=== PATIENT | female | born 1955 | race Caucasian/White ===

== ENCOUNTER → 2016-05-23 | Outpatient (CLI) | payer BC, OTHER ==
--- NOTE | 2016-05-23 18:06 | XR ---
EXAMINATION TYPE: XR chest 2V DATE OF EXAM: 05/23/2016 5:21 PM COMPARISON: 10/12/2011 HISTORY: Cough for one week TECHNIQUE: Frontal and lateral views of the chest are obtained. FINDINGS: Heart and mediastinum are normal. Lungs are clear. Diaphragm is normal. Bony thorax is int act. Pulmonary vascularity is normal. There is small linear density at left lung base. IMPRESSION: There is minimal subsegmental atelectasis in the left lower lobe that is new compared to old exam. Normal heart.
== END | disposition home or self-care (01) ==
LOC: RADXRMAIN 16:58
PROVIDERS: ATTEND Internal Medicine
DX: J98.11 Atelectasis (principal)
CPT/HCPCS: 71020

== ENCOUNTER → 2017-05-16 | Outpatient (CLI) | payer BC, OTHER ==
--- NOTE | 2017-05-16 17:00 | XR ---
EXAMINATION TYPE: XR chest 2V DATE OF EXAM: 05/16/2017 COMPARISON: 05/23/2016 HISTORY: Bronchitis chest pain TECHNIQUE: Frontal and lateral views of the chest are obtained. FINDINGS: Heart and mediastinum are normal. Lungs are clear. Diaphragm is normal. Bony thorax is int act. IMPRESSION: Normal chest. There is clearing of focal minimal atelectasis at left lung base compared to old exam..
== END | disposition home or self-care (01) ==
LOC: RADXRMAIN 16:25
PROVIDERS: ATTEND Internal Medicine
DX: J40 Bronchitis, not specified as acute or chronic (principal)
CPT/HCPCS: 71046

== ENCOUNTER → 2018-03-06 | Outpatient (CLI) | payer BC, OTHER ==
--- NOTE | 2018-03-06 10:39 | MM ---
Reason for exam: additional evaluation requested from prior study. Last mammogram was performed 1 year and 1 month ago. History: Patient is postmenopausal, has history of high-risk lesion on a previous biopsy at age 54, and had first child at age 37. Family history of breast cancer in paternal grandmother at age 70. High risk right breast needle localzation of both breasts, August 17, 2010. Benign right mammotome panel of the right breast, July 18, 2010. Took hormonal contraceptives for 3 years. Took tamoxifen for 5 years beginning at age 54. Physical Findings: Nurse did not find any significant physical abnormalities on exam. MG 3D Diag Mammo W/Cad ALYSSA Bilateral CC and MLO view(s) were taken. Prior study comparison: February 05, 2017, bilateral MG 3d diag mammo w/cad ALYSSA. January 21, 2016, bilateral MG 3d diag mammo w/cad ALYSSA. The breast tissue is heterogeneously dense. This may lower the sensitivity of mammography. No significant new findings when compared with previous films. These results were verbally communicated with the patient and result sheet given to the patient on 03/06/18. ASSESSMENT: Benign, BI-RAD 2 RECOMMENDATION: Routine screening mammogram of both breasts in 1 year.
== END | disposition home or self-care (01) ==
LOC: RADMAMWWP 08:15
PROVIDERS: ATTEND Internal Medicine
DX: R92.2 Inconclusive mammogram (principal)
CPT/HCPCS: 77062; 77066

== ENCOUNTER → 2018-05-20 | Outpatient (CLI) | payer BC, OTHER ==
--- NOTE | 2018-05-20 21:07 | US ---
EXAMINATION TYPE: US carotid duplex BILAT DATE OF EXAM: 05/20/2018 COMPARISON: NONE CLINICAL HISTORY: 62-year-old female I65.23 OCCLUSION STENOSIS OF ALYSSA CAROTID ARTERIES. TECHNIQUE: Carotid duplex ultrasound examination. Indirect Doppler criteria was utilized. FINDINGS: EXAM MEASUREMENTS: RIGHT: Peak Systolic Velocity (PSV) cm/sec ----- Right CCA: 60.5 ----- Right ICA: 98.7 ----- Right ECA: 79.3 ICA/CCA ratio: 1.6 RIGHT: End Diastole cm/sec ----- Right CCA: 19.9 ----- Right ICA: 36.4 ----- Right ECA: 12.9 LEFT: Peak Systolic Velocity (PSV) cm/sec ----- Left CCA: 109.2 ----- Left ICA: 85.9 ----- Left ECA: 67.8 ICA/CCA ratio: 0.8 LEFT: End Diastole cm/sec ----- Left CCA: 26.1 ----- Left ICA: 24.8 ----- Left ECA: 13.1 VERTEBRALS (direction of flow): Right Vertebral: Antegrade Left Vertebral: Antegrade Rhythm: Normal Certified Alcohol Drug Counselor notes: Minimal plaque, no elevated velocities. IMPRESSION: No hemodynamically significant stenosis appreciated in either internal carotid artery. Criteria for Assigning % of Stenosis / Diameter reduction (Estimation based on the indirect measurements of the internal carotid artery velocities (ICA PSV). 1. Normal (no stenosis)=ICA PSV < 125 cm/s: ratio < 2.0: ICA EDV<40 cm/s. 2. Less than 50% stenosis=ICA PSV < 125 cm/s: ratio < 2.0: ICA EDV<40 cm/s. 3. 50 to 69% stenosis=ICA PSV of 125 to 230 cm/s: ration 2.0 ? 4.0: ICA EDV 40-100 cm/s. 4. Greater than 70% stenosis to near occlusion= ICA PSV > 230 cm/s: ratio > 4.0: ICA EDV > 100 cm/s. 5. Near occlusion= ICA PSV velocities may be low or undetectable: variable ratio and ICA EDV. 6. Total occlusion=unable to detect flow.
== END ==
LOC: RADUSWWP 15:40
PROVIDERS: ATTEND Internal Medicine
DX: I65.23 Occlusion and stenosis of bilateral carotid arteries (principal)
CPT/HCPCS: 93880

== ENCOUNTER 2018-06-12 08:28 | Day surgery (SDC) | payer BC, OTHER ==
[2018-06-12] MEDS: LACTATED RINGERS 1,000 ML IV SCH ×2 (09:05→09:38)
[2018-06-12 09:11] VITALS: RESP 16; TEMP 98
[2018-06-12] MEDS ORDERED: PROPOFOL 10 MG/ML 20 ML VIAL IV ONE (09:42)
--- NOTE | 2018-06-12 10:05 | P.PCN ---
Date of Procedure: 06/12/18 Procedure(s) Performed: BRIEF HISTORY: Patient is a 62-year-old pleasant white female, scheduled for an elective colonoscopy as a part of screening for colon neoplasia. PROCEDURE PERFORMED: Colonoscopy with snare polypectomy. PREOPERATIVE DIAGNOSIS: Screening for colon cancer. IV sedation per Anesthesia. PROCEDURE: After informed consent was obtained, the patient, was brought into the endoscopy unit. IV sedation was administered by Anesthesia under continuous monitoring. Digital rectal examination was normal. Initially the Olympus CF- 160 flexible video colonoscope was then inserted in the rectum, gradually advanced into the cecum without any difficulty. Careful examination was performed as the scope was gradually being withdrawn. Ileocecal valve and the appendiceal orifice were visualized and appeared normal. Prep was excellent. In the base of the cecum there was a 1 cm broad-based polyp removed by snare polypectomy. Rest of the mucosa of the cecum appeared normal. In the ascending colon there was another 1 cm broad-based polyp removed by snare polypectomy. Rest of the ascending colon, transverse colon, descending colon, sigmoid colon, and rectum appeared normal. Retroflexion was performed in the rectum and no lesions were seen. scattered sigmoid diverticulosis seen. The patient tolerated the procedure well. IMPRESSION: 1 cm broad-based cecal polyp status post polypectomy 1 cm broad-based ascending colon polyp status post polypectomy Scattered sigmoid diverticulosis RECOMMENDATIONS: Findings of this examination were discussed with the patient as well as a family. She was advised to follow with the biopsy results and if the biopsy shows an adenoma she can have a repeat colonoscopy in 3 years
[2018-06-12 10:40] VITALS: BP 117/83; PULSE 79
== END 2018-06-12 11:00 | disposition home or self-care (01) ==
LOC: ORWHC2ENDO 08:28
PROVIDERS: ATTEND Internal Medicine Gastroenterology
DX: Z12.11 Encounter for screening for malignant neoplasm of colon (principal); D12.0 Benign neoplasm of cecum; D12.2 Benign neoplasm of ascending colon; K57.30 Diverticulosis of large intestine without perforation or abscess without bleeding; I10 Essential (primary) hypertension; Z79.899 Other long term (current) drug therapy; Z91.048 Other nonmedicinal substance allergy status
CPT/HCPCS: 45385; J2704; 88305

== ENCOUNTER → 2019-03-24 | Outpatient (CLI) | payer BC, OTHER ==
--- NOTE | 2019-03-24 09:27 | MM ---
Reason for exam: screening (asymptomatic). Last mammogram was performed 1 year and 1 month ago. History: Patient is postmenopausal, has history of high-risk lesion on a previous biopsy at age 54, and had first child at age 37. Family history of breast cancer in paternal grandmother at age 70. High risk right breast needle localzation of both breasts, August 17, 2010. Benign right mammotome panel of the right breast, July 18, 2010. Took hormonal contraceptives for 3 years. Took tamoxifen for 5 years beginning at age 54. Physical Findings: A clinical breast exam by your physician is recommended on an annual basis and results should be correlated with mammographic findings. MG 3D Screening Mammo W/Cad Bilateral CC and MLO view(s) were taken. Prior study comparison: March 06, 2018, bilateral MG 3d diag mammo w/cad ALYSSA. February 05, 2017, bilateral MG 3d diag mammo w/cad ALYSSA. The breast tissue is heterogeneously dense. This may lower the sensitivity of mammography. There is a stable right upper outer quadrant middle depth mass. No suspicious abnormality. Post surgical change bilaterally. No significant changes when compared with prior studies. ASSESSMENT: Benign, BI-RAD 2 RECOMMENDATION: Routine screening mammogram of both breasts in 1 year.
--- NOTE | 2019-03-24 10:45 | BD ---
EXAMINATION TYPE: Axial Bone Density DATE OF EXAM: 03/24/2019 COMPARISON: 2012 CLINICAL HISTORY: M 83.0 Height: 66 inches Weight: 239 FRAX RISK QUESTIONS: Alcohol (3 or more units per day): no Family History (Parent hip fracture): no Glucocorticoids (More than 3mos): no (Ex: prednisone, prednisolone, methylprednisolone, dexamethasone, and hydrocortisone). History of Fracture in Adulthood: no Secondary Osteoporosis: 1. Type 1 Diabetes: no 2. Hyperthyroidism: no 3. Menopause before 45: no 4. Malnutrition: no 5. Chronic liver disease: no Rheumatoid Arthritis: no Current Tobacco Use: no RISK FACTORS HISTORY OF: Family History of Osteoporosis: not to knowledge of patient Active: yes Diet low in dairy products/other sources of calcium: no Postmenopausal woman: ys Take estrogen and/or progesterone medications: no Lost more than 2 inches in height since high school: no Frequent falls: no Poor Health: no Hyperparathyroidism: no Adrenal Insufficiency: no MEDICATIONS: Prednisone or other steroids: no Thyroid Medications: no Osteoporosis Medications: no Additional Medications: blood pressure med Additional History: lobular breast CA in situ age 54; at one time took tamoxifen age [age] EXAM MEASUREMENTS: Bone mineral densitometry was performed using the [employer]oladex System. Bone mineral density as measured about the Lumbar spine is: ----- L1-L4(G/cm2): 1.221 T Score Values are as follows: ----- L2: 0.1 ----- L3: 1.1 ----- L4: 1.1 ----- L1-L4: 0.3 Bone mineral density has: Decreased -3.9 % since study of: 05/08/2013 Bone mineral density about the R hip (g/cm2): 1.006 Bone mineral density about the L hip (g/cm2): 0.908 T Score Values are as follows: R Neck -0.2 L Neck -0.9 R Total -0.5 L Total -0.4 Bone mineral density has decreased -11.0% since study of 05/08/2013 IMPRESSION: Normal (Values between +1 and -1 indicate normal bone mass). Values approach osteopenia. Consider re peating this study in 5 years or sooner if there is some new clinical indication. NOTE: T-SCORE=SD OF THE YOUNG ADULT MEAN.
== END | disposition home or self-care (01) ==
LOC: RADMAMWWP 07:29
PROVIDERS: ATTEND Internal Medicine
DX: Z12.31 Encounter for screening mammogram for malignant neoplasm of breast (principal); M85.80 Other specified disorders of bone density and structure, unspecified site; M81.0 Age-related osteoporosis without current pathological fracture
CPT/HCPCS: 77063; 77067; 77080

== ENCOUNTER 2020-02-11 12:48 | Inpatient (IN) | payer BC, OTHER ==
[2020-02-11] MEDS ORDERED: SODIUM CHLORIDE 0.9% 1,000 ML IV STA ×2 (13:26)
--- NOTE | 2020-02-11 13:56 | ED ---
General Adult HPI - General Chief complaint: Recheck/Abnormal Lab/Rx Stated complaint: Abnormal Labs Time Seen by Provider: 02/11/20 12:51 Source: patient, RN notes reviewed, old records reviewed Mode of arrival: ambulatory Limitations: no limitations - History of Present Illness Initial comments: 64-year-old female sent in by primary care physician for evaluation of elevated creatinine and acute renal failure. Patient has been feeling ill for approx imately one week, poor appetite. She was diagnosed with coronavirus. She has no cough or dyspnea. No chest pain. No abdominal pain. She states she has not been eating or drinking well. She was found to have elevated creatinine and sent to the emergency department for evaluation. - Related Data Home Medications Medication Instructions Recorded Confirmed Atorvastatin Calcium [Lipitor] 10 mg PO HS 02/11/20 02/11/20 Escitalopram [Lexapro] 5 mg PO DAILY 02/11/20 02/11/20 Lisinopril-Hctz 20-25 mg 1 tab PO DAILY 02/11/20 02/11/20 [Zestoretic 20-25] Metoprolol Tartrate [Lopressor] 25 mg PO BID 02/11/20 02/11/20 Allergies Allergy/AdvReac Type Severity Reaction Status Date / Time iodine Allergy Anaphylaxis Verified 02/11/20 13:37 shellfish derived [Shellfish] Allergy Nausea & Verified 02/11/20 13:37 Vomiting Review of Systems ROS Statement: Those systems with pertinent positive or pertinent negative responses have been documented in the HPI. ROS Other: All systems not noted in ROS Statement are negative. Past Medical History Past Medical History: Hypertension History of Any Multi-Drug Resistant Organisms: None Reported Past Surgical History: Breast Surgery Additional Past Surgical History / Comment(s): RIGHT BREAST BX-NEG. LAPROSCOPY. BILATERAL CATARACTS WITH LENS IMPLANTS Past Anesthesia/Blood Transfusion Reactions: No Reported Reaction Additional Past Anesthesia/Blood Transfusion Reaction / Comment(s): SEEMS TO TAKE EXTRA ANESTHESIA TO KEEP HER ASLEEP. Past Psychological History: No Psychological Hx Reported Smoking Status: Never smoker Past Alcohol Use History: Occasional Past Drug Use History: None Reported General Exam Limitations: no limitations General appearance: alert, in no apparent distress Head exam: Present: atraumatic, normocephalic Eye exam: Present: normal appearance, PERRL ENT exam: Present: mucous membranes dry Neck exam: Present: normal inspection. Absent: tenderness, meningismus Respiratory exam: Present: normal lung sounds bilaterally. Absent: respiratory distress, wheezes Cardiovascular Exam: Present: regular rate, normal rhythm GI/Abdominal exam: Present: soft. Absent: distended, tenderness, guarding Extremities exam: Present: normal inspection, normal capillary refill. Absent: pedal edema Neurological exam: Present: alert, oriented X3, CN II-XII intact. Absent: motor sensory deficit Psychiatric exam: Present: normal affect, normal mood Skin exam: Present: warm, dry, intact. Absent: cyanosis, diaphoretic Course Vital Signs 02/11/20 12:51 Pulse Rate 84 Respiratory 16 Rate Blood Pressure 119/67 O2 Sat by Pulse 97 Oximetry EKG Findings - EKG Comments: EKG Findings:: EKG: Normal sinus rhythm, no ST segment elevation, rate of 82, IL interval 152, QRS duration 92, QTC 462 Medical Decision Making - Medical Decision Making Patient who tested positive for COVID, poor appetite, diarrhea, presenting with acute kidney injury, elevated creatinine. Patient does appear dehydrated, work up in the emergency department reveals a creatinine 1.3, elevated BUN. Urinalysis showing 82 red blood cells. Urine culture pending, patient started on ceftriaxone emergency prompt. She will be admitted for IV hydration. Case discussed with Dr. More, who will admit, requests infectious disease on consult. - Lab Data Result diagrams: 02/11/20 13:42 02/11/20 13:42 Lab Results 02/11/20 02/11/20 02/11/20 Range/Units 13:42 13:42 13:42 WBC 6.0 (3.8-10.6) k/uL RBC 4.42 (3.80-5.40) m/uL Hgb 13.1 (11.4-16.0) gm/dL Hct 39.7 (34.0-46.0) % MCV 89.8 (80.0-100.0) fL MCH 29.6 (25.0-35.0) pg MCHC 33.0 (31.0-37.0) g/dL RDW 13.5 (11.5-15.5) % Plt Count 377 (150-450) k/uL Neutrophils % 78 % Lymphocytes % 14 % Monocytes % 4 % Eosinophils % 1 % Basophils % 1 % Neutrophils # 4.7 (1.3-7.7) k/uL Lymphocytes # 0.8 L (1.0-4.8) k/uL Monocytes # 0.2 (0-1.0) k/uL Eosinophils # 0.0 (0-0.7) k/uL Basophils # 0.0 (0-0.2) k/uL PT 9.6 (9.0-12.0) sec INR 0.9 (<1.2) APTT 22.8 (22.0-30.0) sec Sodium 134 L (137-145) mmol/L Potassium 4.9 (3.5-5.1) mmol/L Chloride 101 (98-107) mmol/L Carbon Dioxide 24 (22-30) mmol/L Anion Gap 9 mmol/L BUN 36 H (7-17) mg/dL Creatinine 1.30 H (0.52-1.04) mg/dL Est GFR (CKD-EPI)AfAm 51 (>60 ml/min/1.73 sqM) Est GFR (CKD-EPI)NonAf 44 (>60 ml/min/1.73 sqM) Glucose 123 H (74-99) mg/dL Plasma Lactic Acid Max (0.7-2.0) mmol/L Calcium 9.2 (8.4-10.2) mg/dL Magnesium 2.2 (1.6-2.3) mg/dL Total Bilirubin 0.8 (0.2-1.3) mg/dL AST 37 H (14-36) U/L ALT 18 (4-34) U/L Alkaline Phosphatase 86 (38-126) U/L Total Protein 7.4 (6.3-8.2) g/dL Albumin 4.2 (3.5-5.0) g/dL Urine Color Urine Appearance (Clear) Urine pH (5.0-8.0) Ur Specific [place] (1.001-1.035) Urine Protein (Negative) Urine Glucose (UA) (Negative) Urine Ketones (Negative) Urine Blood (Negative) Urine Nitrite (Negative) Urine Bilirubin (Negative) Urine Urobilinogen (<2.0) mg/dL Ur Leukocyte Esterase (Negative) Urine RBC (0-5) /hpf Urine WBC (0-5) /hpf Urine WBC Clumps (None) /hpf Ur Squamous Epith Cells (0-4) /hpf Urine Bacteria (None) /hpf Urine Mucus (None) /hpf 02/11/20 02/11/20 Range/Units 13:42 13:48 WBC (3.8-10.6) k/uL RBC (3.80-5.40) m/uL Hgb (11.4-16.0) gm/dL Hct (34.0-46.0) % MCV (80.0-100.0) fL MCH (25.0-35.0) pg MCHC (31.0-37.0) g/dL RDW (11.5-15.5) % Plt Count (150-450) k/uL Neutrophils % % Lymphocytes % % Monocytes % % Eosinophils % % Basophils % % Neutrophils # (1.3-7.7) k/uL Lymphocytes # (1.0-4.8) k/uL Monocytes # (0-1.0) k/uL Eosinophils # (0-0.7) k/uL Basophils # (0-0.2) k/uL PT (9.0-12.0) sec INR (<1.2) APTT (22.0-30.0) sec Sodium (137-145) mmol/L Potassium (3.5-5.1) mmol/L Chloride (98-107) mmol/L Carbon Dioxide (22-30) mmol/L Anion Gap mmol/L BUN (7-17) mg/dL Creatinine (0.52-1.04) mg/dL Est GFR (CKD-EPI)AfAm (>60 ml/min/1.73 sqM) Est GFR (CKD-EPI)NonAf (>60 ml/min/1.73 sqM) Glucose (74-99) mg/dL Plasma Lactic Acid Max 1.2 (0.7-2.0) mmol/L Calcium (8.4-10.2) mg/dL Magnesium (1.6-2.3) mg/dL Total Bilirubin (0.2-1.3) mg/dL AST (14-36) U/L ALT (4-34) U/L Alkaline Phosphatase (38-126) U/L Total Protein (6.3-8.2) g/dL Albumin (3.5-5.0) g/dL Urine Color Yellow Urine Appearance Cloudy H (Clear) Urine pH 5.5 (5.0-8.0) Ur Specific [place] 1.014 (1.001-1.035) Urine Protein Negative (Negative) Urine Glucose (UA) Negative (Negative) Urine Ketones Negative (Negative) Urine Blood Negative (Negative) Urine Nitrite Positive H (Negative) Urine Bilirubin Negative (Negative) Urine Urobilinogen <2.0 (<2.0) mg/dL Ur Leukocyte Esterase Large H (Negative) Urine RBC 2 (0-5) /hpf Urine WBC 82 H (0-5) /hpf Urine WBC Clumps Moderate H (None) /hpf Ur Squamous Epith Cells 3 (0-4) /hpf Urine Bacteria Moderate H (None) /hpf Urine Mucus Rare H (None) /hpf Disposition Clinical Impression: COVID-19, FLORENTIN (acute kidney injury) Disposition: ADMITTED IP TO THIS [facility] Condition: Stable Is patient prescribed a controlled substance at d/c from ED?: No Referrals: Devang More MD [Primary Care Provider] - 1-2 days Decision to Admit Reason: Admit from EC Decision Date: 02/11/20 Decision Time: 14:45
[2020-02-11 14:19] LABS: Basophils % (A) 1 %; Eosinophils % (A) 1 %; HCT 39.7 % (34.0-46.0); HGB 13.1 gm/dL (11.4-16.0); Lymphocytes # (A) 0.8 k/uL (1.0-4.8); Lymphocytes % (A) 14 %; MCH 29.6 pg (25.0-35.0); MCV 89.8 fL (80.0-100.0); Mean Platelet Volume 6.6; Monocytes # (A) 0.2 k/uL (0-1.0); Monocytes % (A) 4 %; Neutrophils # (A) 4.7 k/uL (1.3-7.7); Neutrophils % (A) 78 %; Platelet Count 377 k/uL (150-450); RBC 4.42 m/uL (3.80-5.40); RDW 13.5 % (11.5-15.5)
[2020-02-11 14:23] LABS: Appearance,Urine Cloudy (Clear); Bacteria,Urine Moderate /hpf; Bilirubin,Urine Negative (Negative); Blood,Urine Negative (Negative); Color,Urine Yellow; Glucose,Urine (UA) Negative (Negative); Ketones,Urine Negative (Negative); Leukocyte Esterase,Urine Large (Negative); Mucus,Urine Rare /hpf; Nitrite,Urine Positive (Negative); PH, Urine 5.5 (5.0-8.0); Protein,Urine Negative (Negative); RBC,Urine 2 /hpf (0-5); Specific Gravity,Urine 1.014 (1.001-1.035); Squamous Epithelial Cell,Urine 3 /hpf (0-4); Urobilinogen,Urine <2.0 mg/dL (<2.0); WBC,Urine 82 /hpf (0-5)
[2020-02-11 14:26] LABS: Albumin 4.2 g/dL (3.5-5.0); Calcium 9.2 mg/dL (8.4-10.2); Magnesium 2.2 mg/dL (1.6-2.3); Potassium 4.9 mmol/L (3.5-5.1); Total Bilirubin 0.8 mg/dL (0.2-1.3); Total Protein 7.4 g/dL (6.3-8.2)
[2020-02-11 14:34] LABS: INR 0.9 (<1.2); Partial Thromboplastin Time 22.8 sec (22.0-30.0); Prothrombin Time 9.6 sec (9.0-12.0)
[2020-02-11] MEDS ORDERED: cefTRIAXone IN SWFI 1,000 MG/10 ML SYRINGE IVP STA (14:41)
[2020-02-11] MEDS ORDERED: NALOXONE 0.4 MG/ML 1 ML VIAL IV PRN (14:43)
[2020-02-11] MEDS ORDERED: ACETAMINOPHEN TAB 325 MG TAB PO PRN (14:43)
[2020-02-11] MEDS: ENOXAPARIN 40 MG/0.4 ML SYRINGE SQ SCH (17:47)
[2020-02-11] MEDS: ZINC SULFATE 220 MG CAP PO SCH (17:47)
[2020-02-11] MEDS: dexAMETHasone 2 MG TAB PO SCH (17:47)
--- NOTE | 2020-02-11 17:50 | P.HPIM ---
History of Present Illness H&P Date: 02/11/20 Chief Complaint: COVID-19 / FLORENTIN This is a 65-year-old female one of my patient with a previous medical history significant for hypertension and hypertensive cardiovascular disease, hyperlipidemia, history of major depressive disorder, patient came to my office about a week ago complaining of increased tiredness and fatigue along with severe diarrhea and poor appetite not able to treat or drink, at that time laboratory evaluation were done and that showed significant acute kidney injury with a creatinine of 2.3 and a GFR down all the way to 27, and the patient was taken off lisinopril hydrochlorothiazide she was instructed to increase her fluid intake and discontinue Lexapro and lisinopril hydrochlorothiazide, and at the same time she had a COVID-19 PCR testing that came back positive just today in the morning patient was called and she was directed to go to the emergency department for evaluation and treatment because of her Covid, and prior history of acute kidney injury, patient was seen by the emergency room department and she was admitted to the observation unit likely her creatinine got better 12.3, she was placed on IV fluid resuscitation she'll be placed on dexamethasone as well she is not a candidate for Remdesevir because she is not hypoxemic at this time, infectious disease consultation was obtained from Dr. Cage and the patient was placed in droplet and contact isolation, patient also was found to have acute UTI, she was startedon Rocephin 2 gr IVPB x1 and we will start Zithromax as her CXR showed new bilateral infiltrate suggestive of early pneumonia. Review of Systems Constitutional: Reports anorexia, Reports fatigue, Reports weakness, Denies chronic pain, Denies lethargy, Denies malaise, Denies weight loss Eyes: denies blurred vision, denies bulging eye, denies decreased vision Ears: deny: decreased hearing Ears, nose, mouth and throat: Denies dysphagia, Denies neck lump, Denies swelling in throat, Denies sore throat Cardiovascular: Denies chest pain, Denies decreased exercise tolerance, Denies dyspnea on exertion, Denies lightheadedness, Denies rapid heart beat, Denies luke rtness of breath, Denies syncope Respiratory: Denies congestion, Denies cough, Denies cough with sputum, Denies home oxygen, Denies respiratory infections, Denies sleep apnea, Denies snoring, Denies wheezing Gastrointestinal: Reports diarrhea, Reports loss of appetite, Denies abdominal pain, Denies bloating, Denies BRBPR, Denies change in bowel habits, Denies excessive gas, Denies heartburn, Denies hematemesis, Denies melena, Denies nausea, Denies vomiting Genitourinary: Denies dysuria, Denies nocturia Musculoskeletal: Denies myalgias Musculoskeletal: absent: ankle pain, ankle stiffness, ankle swelling, elbow pain, elbow stiffness, elbow swelling, foot pain, foot stiffness, foot swelling, hand pain, hand stiffness, hand swelling, hip pain, hip stiffness, hip swelling, knee pain, knee stiffness, knee swelling, shoulder pain, shoulder stiffness, shoulder swelling, wrist pain, wrist stiffness, wrist swelling Integumentary: Denies pruritus, Denies rash Neurological: Denies numbness, Denies weakness Psychiatric: Reports anxiety, Reports depression, Denies sadness/tearfulness, Denies sleep disturbances, Denies suicidal ideation Endocrine: Denies fatigue, Denies weight change Past Medical History Past Medical History: Hyperlipidemia, Hypertension History of Any Multi-Drug Resistant Organisms: None Reported Past Surgical History: Breast Surgery Additional Past Surgical History / Comment(s): RIGHT BREAST BX-NEG. LAPROSCOPY. BILATERAL CATARACTS WITH LENS IMPLANTS Past Anesthesia/Blood Transfusion Reactions: No Reported Reaction Additional Past Anesthesia/Blood Transfusion Reaction / Comment(s): SEEMS TO TAKE EXTRA ANESTHESIA TO KEEP HER ASLEEP. Past Psychological History: No Psychological Hx Reported Smoking Status: Never smoker Past Alcohol Use History: Occasional Past Drug Use History: None Reported Medications and Allergies Home Medications Medication Instructions Recorded Confirmed Type Atorvastatin Calcium [Lipitor] 10 mg PO HS 02/11/20 02/11/20 History Escitalopram [Lexapro] 5 mg PO DAILY 02/11/20 02/11/20 History Lisinopril-Hctz 20-25 mg 1 tab PO DAILY 02/11/20 02/11/20 History [Zestoretic 20-25] Metoprolol Tartrate [Lopressor] 25 mg PO BID 02/11/20 02/11/20 History Allergies Allergy/AdvReac Type Severity Reaction Status Date / Time iodine Allergy Anaphylaxis Verified 02/11/20 13:37 shellfish derived [Shellfish] Allergy Nausea & Verified 02/11/20 13:37 Vomiting Physical Exam Vitals: Vital Signs Temp Pulse Resp BP Pulse Ox 02/11/20 15:00 98.0 F 84 18 127/72 97 02/11/20 14:30 75 18 118/70 97 02/11/20 14:00 77 18 127/76 96 02/11/20 12:51 84 16 119/67 97 Intake and Output 02/11/20 02/11/20 02/11/20 06:59 14:59 22:59 Other: Weight 104.326 kg Physical examination: HEENT: Head is atraumatic, normocephalic, pupils were equal round reactive to light liquidation, extraocular muscle movement were intact, sclera nonicteric, conjunctiva not pale, mucous membranes of the mouth are somewhat dry. Neck: Supple, no JVP, no carotid bruit. Chest: Decreased breath sounds at the bases, few rhonchi, no expiratory wheezes, no chest wall tenderness, no intercostal retractions. Heart: First heart sound is depressed, second sound is normal, there is no gallop or murmur. Abdomen: Soft, nontender, nondistended, positive bowel sounds. Extremities: No edema, no calf tenderness, dorsalis pedis +2 bilaterally.. Neurologic examination: Patient is awake alert and oriented 3, cranial nerves II-12 appear to be grossly intact, muscle power 5 out of 5 in upper and lower extremities bilaterally. Results CBC & Chem 7: 02/11/20 13:42 02/11/20 13:42 Labs: Abnormal Lab Results - Last 24 Hours (Table) 02/11/20 02/11/20 02/11/20 Range/Units 13:42 13:42 13:48 Lymphocytes # 0.8 L (1.0-4.8) k/uL Sodium 134 L (137-145) mmol/L BUN 36 H (7-17) mg/dL Creatinine 1.30 H (0.52-1.04) mg/dL Glucose 123 H (74-99) mg/dL AST 37 H (14-36) U/L Urine Appearance Cloudy H (Clear) Urine Nitrite Positive H (Negative) Ur Leukocyte Esterase Large H (Negative) Urine WBC 82 H (0-5) /hpf Urine WBC Clumps Moderate H (None) /hpf Urine Bacteria Moderate H (None) /hpf Urine Mucus Rare H (None) /hpf Thrombosis Risk Factor Assmnt - DVT/VTE Prophylaxis DVT/VTE Prophylaxis: Pharmacologic Prophylaxis ordered, Mechanical Prophylaxis ordered Assessment and Plan Assessment: Assessment and plan: 1. Covid 19 positive PCR. Continue IV fluid resuscitation the form of normal saline at 125 mL an hour, monitor the patient CMP the next 24 hours, keep the patient off ELTON inhibitor for now, patient will be started on dexamethasone 6 minute gram orally once every day, Lovenox 40 mg subcu Sunday every 24 hours, continue Rocephin 1 g IV piggyback every 24 hours, continue using sulfate 220 mg orally once every day, monitor the patient very closely keep her in contact and droplet precautions, infectious disease consultation from . 2. Acute kidney injury due to acute tubular necrosis and diarrhea likely related to Covid 19. Continue IV fluid resuscitation her creatinine has gone better over the last few days, repeat CMP and an x-ray 4 hours. 3. Urinary tract unfection. we will continue with IVF and we will continue with Rocephin 2 gr IVPB daily await the results of cultures. 4. Hypertension and hypertensive cardiovascular disease. Continue patient on metoprolol 25 mg orally twice every day. 5. Hyperlipidemia. Continue patient on Lipitor 10 mg orally once every day. 6. History of anxiety and depressive disorder. Keep the patient off Lexapro for now. 7. DVT prophylaxis. Continue the patient on Lovenox 40 mg subcutaneously every 24 hours. 8. GI prophylaxis. Continue patient on Protonix 40 mg orally once every day. 9. Diarrhea likely related to Covid 19. Continue IV fluid resuscitation. 10. Admits to inpatient estimated length of stay is 2 midnights. 11. Patient's full code.
[2020-02-11 17:51] LABS: C Reactive Protein 36.8 mg/L (<10.0)
--- NOTE | 2020-02-11 17:56 | XR ---
EXAMINATION TYPE: XR chest 1V portable DATE OF EXAM: 02/11/2020 COMPARISON: 05/16/2017 HISTORY: Pneumonia TECHNIQUE: FINDINGS: There is some patchy airspace infiltrate in the periphery of the left midlung. There is als o a small right side perihilar airspace infiltrate. Costophrenic angles are clear. There is no heart failure. Heart size is normal. Bony thorax appears intact. IMPRESSION: Bilateral pneumonia appears new compared to old exam. Normal heart.
[2020-02-11] MEDS: ATORVASTATIN 10 MG TAB PO SCH ×2 (21:03→21:04)
[2020-02-11] MEDS: METOPROLOL TARTRATE 25 MG TAB PO SCH (21:03)
--- NOTE | 2020-02-11 23:01 | P.CONS ---
History of Present Illness - Reason for Consult Consult date: 02/11/20 Covid 19 infection Requesting physician: Devang More - Chief Complaint Weakness no energy and diarrhea x one week - History of Present Illness Patient is a 65 year female with past medical history significant for hypertension impression she was evaluated by the primary care physician in the office about a week ago complaining of increasing tiredness and fatigue along with severe diarrhea and decreased appetite patient was evaluated by the primary care physician patient did have a blood work noticed to have elevated creatinine and her lisinopril was put on hold and patient was encouraged fluid intake patient did have a Covid 19 nasal pharyngeal swab sent which subsequently came back positive and the patient advised to go to the hospital, on today's evalua tion the patient denies having any fever or chills the symptom has been mostly generalized weakness and no energy denies any significant headache or urinary symptoms no chest pain or shortness with very minimal dry cough no sputum production, nausea no vomiting no abdominal pain and the patient diarrhea has slowed down patient was evaluated by the physician on arrival to the ER, the patient was afebrile the patient did have a normal white count however did shows evidence of lymphopenia, which included in has improved down to 1.30 AST mildly elevated at 37 patient did have a positive UA and chest x-ray was done and she was admitted to the hospital infectious disease was consulted for further management of possible UTI as well as Covid 19 infection Review of Systems Positive point has been mentioned in the HPI rest of the systems are negative Past Medical History Past Medical History: Hypertension History of Any Multi-Drug Resistant Organisms: None Reported Past Surgical History: Breast Surgery Additional Past Surgical History / Comment(s): RIGHT BREAST BX-NEG. LAPROSCOPY. BILATERAL CATARACTS WITH LENS IMPLANTS Past Anesthesia/Blood Transfusion Reactions: No Reported Reaction Additional Past Anesthesia/Blood Transfusion Reaction / Comm: SEEMS TO TAKE EXTRA ANESTHESIA TO KEEP HER ASLEEP. Past Psychological History: No Psychological Hx Reported Smoking Status: Never smoker Past Alcohol Use History: Occasional Past Drug Use History: None Reported Medications and Allergies Home Medications Medication Instructions Recorded Confirmed Type Atorvastatin Calcium [Lipitor] 10 mg PO HS 02/11/20 02/11/20 History Escitalopram [Lexapro] 5 mg PO DAILY 02/11/20 02/11/20 History Lisinopril-Hctz 20-25 mg 1 tab PO DAILY 02/11/20 02/11/20 History [Zestoretic 20-25] Metoprolol Tartrate [Lopressor] 25 mg PO BID 02/11/20 02/11/20 History Allergies Allergy/AdvReac Type Severity Reaction Status Date / Time iodine Allergy Anaphylaxis Verified 02/11/20 13:37 shellfish derived [Shellfish] Allergy Nausea & Verified 02/11/20 13:37 Vomiting Physical Exam Vitals: Vital Signs Temp Pulse Pulse Resp BP BP Pulse Ox 02/11/20 15:00 98.1 F 84 75 16 127/72 132/72 98 02/11/20 14:30 75 18 118/70 97 02/11/20 14:00 77 18 127/76 96 02/11/20 12:51 84 16 119/67 97 Intake and Output 02/11/20 02/11/20 02/11/20 06:59 14:59 22:59 Other: Weight 104.326 kg GENERAL DESCRIPTION: Middle-aged female lying in bed, no distress. No tachypnea or accessory muscle of respiration use. HEENT: Shows Pallor , no scleral icterus. Oral mucous membrane is dry. No pharyngeal erythema or thrush NECK: Trachea central, no thyromegaly. LUNGS: Unlabored breathing. Decreased intensity of breath sounds. No wheeze or crackle. HEART: S1, S2, regular rate and rhythm. No loud murmur ABDOMEN: Soft, no tenderness , guarding or rigidity, no organomegaly EXTREMITIES: No edema of feet. SKIN: No rash, no masses palpable. NEUROLOGICAL: The patient is awake, alert, oriented x3, mood and affect normal. Results CBC & Chem 7: 02/11/20 13:42 02/11/20 13:42 Labs: Abnormal Lab Results - Last 24 Hours (Table) 02/11/20 02/11/20 02/11/20 Range/Units 13:42 13:42 13:48 Lymphocytes # 0.8 L (1.0-4.8) k/uL Sodium 134 L (137-145) mmol/L BUN 36 H (7-17) mg/dL Creatinine 1.30 H (0.52-1.04) mg/dL Glucose 123 H (74-99) mg/dL AST 37 H (14-36) U/L Urine Appearance Cloudy H (Clear) Urine Nitrite Positive H (Negative) Ur Leukocyte Esterase Large H (Negative) Urine WBC 82 H (0-5) /hpf Urine WBC Clumps Moderate H (None) /hpf Urine Bacteria Moderate H (None) /hpf Urine Mucus Rare H (None) /hpf Assessment and Plan Assessment: 1- patient with positive Covid 19 PCR in this patient predominantly did have GI symptoms of diarrhea has been going on for about a week patient did have very mild respiratory symptoms currently with no fever and not requiring any supplemental oxygen unfortunately no chest x-ray was done to see the patient is any evidence of pneumonia, and the patient seemed to have for some clinical improvement and is feeling slightly better with IV fluids 2- positive UA with a possible component of enteric gram-negative urinary tract infection (1) Urinary tract infection Current Visit: Yes Status: Acute Code(s): N39.0 - URINARY TRACT INFECTION, SITE NOT SPECIFIED SNOMED Code(s): 37201777 (2) COVID-19 Current Visit: Yes Status: Acute Code(s): U07.1 - COVID-19 SNOMED Code(s): 153534544 Plan: 1- we will obtain a chest x-ray portable 2- check CRP, pro-calcitonin, LDH, d-dimer 3-we will start the patient dexamethasone 6 mg daily and Lovenox 40 daily along with zinc sulfate. 4-Rocephin 2 g daily for the urinary tract infection 5-droplet isolation Will follow on a clinical condition and cultures to further adjust medication if needed Thank you for this consultation will follow this patient along with you Time with Patient: Greater than 30
[2020-02-12] MEDS: ENOXAPARIN 40 MG/0.4 ML SYRINGE SQ SCH (08:22)
[2020-02-12] MEDS: METOPROLOL TARTRATE 25 MG TAB PO SCH ×2 (08:23→21:10)
[2020-02-12] MEDS: ZINC SULFATE 220 MG CAP PO SCH (08:23)
[2020-02-12] MEDS: dexAMETHasone 2 MG TAB PO SCH (08:23)
[2020-02-12 09:11] LABS: Basophils % (A) 1 %; Eosinophils % (A) 0 %; HCT 37.3 % (34.0-46.0); Lymphocytes # (A) 0.5 k/uL (1.0-4.8); Lymphocytes % (A) 20 %; MCH 29.2 pg (25.0-35.0); MCHC 32.3 g/dL (31.0-37.0); MCV 90.4 fL (80.0-100.0); Mean Platelet Volume 6.8; Monocytes # (A) 0.1 k/uL (0-1.0); Monocytes % (A) 5 %; Neutrophils # (A) 1.8 k/uL (1.3-7.7); Neutrophils % (A) 71 %; Platelet Count 425 k/uL (150-450); RBC 4.12 m/uL (3.80-5.40); RDW 13.2 % (11.5-15.5); WBC 2.5 k/uL (3.8-10.6)
[2020-02-12] MEDS: AZITHROMYCIN 500 MG in SODIUM CHLORIDE 0.9% 250 ML IVPB SCH (09:44)
[2020-02-12 09:51] LABS: Albumin 3.7 g/dL (3.5-5.0); C Reactive Protein 33.7 mg/L (<10.0); Calcium 9.1 mg/dL (8.4-10.2); Potassium 4.9 mmol/L (3.5-5.1); Total Bilirubin 0.6 mg/dL (0.2-1.3); Total Protein 6.6 g/dL (6.3-8.2)
[2020-02-12] MEDS: ATORVASTATIN 10 MG TAB PO SCH (21:10)
--- NOTE | 2020-02-12 22:44 | PN ---
PROGRESS NOTE DATE OF SERVICE: 02/12/2020 REASON FOR FOLLOWUP: 1. Acute COVID-19 pneumonia. 2. Urinary tract infection. INTERVAL HISTORY: Patient remains to be afebrile. The patient is breathing comfortably on room air. The patient complains of shortness of breath on exertion. She did have a cough which is mild to moderate intensity and dry in nature. No nausea, vomiting, abdominal pain, diarrhea has resolved. PHYSICAL EXAMINATION: Blood pressure 135/64, pulse of 87, temperature 98.2. She is 95% on room air. General description: The patient is a middle-aged female up in the bed in no distress. Respiratory system: Unlabored breathing, decreased intensity of breath sounds. No wheeze. HEART: S1, S2. Regular rate and rhythm. ABDOMEN: Soft, no tenderness. LABS: Hemoglobin is 12.2, white count 10.5. D-dimer is normal at 0.58 and LDH and CRP are down compared to yesterday. Urine showing a gram-negative. normal. IMPRESSION/PLAN: 1. Patient with acute COVID-19 infection in this patient who seemed to have shown some clinical response to the dexamethasone, Lovenox, zinc. Zithromax has been added, to continue and we will repeat the blood work tomorrow. 2. Patient with gram-negative urinary tract infection covered with Rocephin. Waiting for the culture to finalize. MMODL / IJN: [id number] /
[2020-02-13] MEDS: dexAMETHasone 2 MG TAB PO SCH (08:23)
[2020-02-13] MEDS: ENOXAPARIN 40 MG/0.4 ML SYRINGE SQ SCH (08:23)
[2020-02-13] MEDS: METOPROLOL TARTRATE 25 MG TAB PO SCH (08:23)
[2020-02-13] MEDS: ZINC SULFATE 220 MG CAP PO SCH (08:23)
[2020-02-13] MEDS: AZITHROMYCIN 500 MG in SODIUM CHLORIDE 0.9% 250 ML IVPB SCH (09:21)
[2020-02-13 11:56] LABS: Basophils % (A) 0 %; Eosinophils % (A) 0 %; HCT 34.9 % (34.0-46.0); HGB 11.5 gm/dL (11.4-16.0); Lymphocytes # (A) 0.9 k/uL (1.0-4.8); Lymphocytes % (A) 12 %; MCHC 32.9 g/dL (31.0-37.0); Mean Platelet Volume 6.7; Monocytes # (A) 0.3 k/uL (0-1.0); Monocytes % (A) 4 %; Neutrophils # (A) 6.5 k/uL (1.3-7.7); Neutrophils % (A) 83 %; Platelet Count 460 k/uL (150-450); RBC 3.84 m/uL (3.80-5.40); RDW 13.4 % (11.5-15.5); WBC 7.8 k/uL (3.8-10.6)
[2020-02-13 15:10] VITALS: BP 137/76; PULSE 87; RESP 17; TEMP 98.1
--- NOTE | 2020-02-13 15:11 | P.PN ---
Subjective Progress Note Date: 02/12/20 Principal diagnosis: COVID-19 Pneumnia/UTI. This is a 65-year-old female one of my patient with a previous medical history significant for hypertension and hypertensive cardiovascular disease, hyperlipidemia, history of major depressive disorder, patient came to my office about a week ago complaining of increased tiredness and fatigue along with severe diarrhea and poor appetite not able to treat or drink, at that time laboratory evaluation were done and that showed significant acute kidney injury with a creatinine of 2.3 and a GFR down all the way to 27, and the patient was taken off lisinopril hydrochlorothiazide she was instructed to increase her fluid intake and discontinue Lexapro and lisinopril hydrochlorothiazide, and at the same time she had a COVID-19 PCR testing that came back positive just today in the morning patient was called and she was directed to go to the emergency department for evaluation and treatment because of her Covid, and prior history of acute kidney injury, patient was seen by the emergency room department and she was admitted to the observation unit likely her creatinine got better 12.3, she was placed on IV fluid resuscitation she'll be placed on dexamethasone as well she is not a candidate for Remdesevir because she is not hypoxemic at this time, infectious disease consultation was obtained from Dr. Cage and the pat ient was placed in droplet and contact isolation, patient also was found to have acute UTI, she was startedon Rocephin 2 gr IVPB x1 and we will start Zithromax as her CXR showed new bilateral infiltrate suggestive of early pneumonia. 02/11: Patient is sitting up in bed, feeling a bit better, she continue to have some shortness of breath with ambulation with minimal cough and some phlegm production, no drop in her O2 sat, and she has good appetite, no loss of taste or smell, she is feeling better today, urine culture still pending and talked to her about the results of her CXR. Objective - Vital Signs Vital signs: Vital Signs Temp 98.0 F 02/12/20 03:00 Pulse 92 02/12/20 03:00 Resp 18 02/12/20 03:00 BP 135/65 02/12/20 03:00 Pulse Ox 96 02/12/20 03:00 Intake & Output 02/11/20 02/11/20 02/12/20 06:59 18:59 06:59 Weight 104.326 kg Other: Voiding Method Toilet # Voids 1 - Exam Review of Systems Constitutional: Reports anorexia, Reports fatigue, Reports weakness, Denies chronic pain, Denies lethargy, Denies malaise, Denies weight loss Eyes: denies blurred vision, denies bulging eye, denies decreased vision Ears: deny: decreased hearing Ears, nose, mouth and throat: Denies dysphagia, Denies neck lump, Denies swelling in throat, Denies sore throat Cardiovascular: Denies chest pain, Denies decreased exercise tolerance, Denies dyspnea on exertion, Denies lightheadedness, Denies rapid heart beat, Denies shortness of breath, Denies syncope Respiratory: Denies congestion, Denies cough, Denies cough with sputum, Denies home oxygen, Denies respiratory infections, Denies sleep apnea, Denies snoring, Denies wheezing Gastrointestinal: Reports diarrhea, Reports loss of appetite, Denies abdominal pain, Denies bloating, Denies BRBPR, Denies change in bowel habits, Denies excessive gas, Denies heartburn, Denies hematemesis, Denies melena, Denies nausea, Denies vomiting Genitourinary: Denies dysuria, Denies nocturia Musculoskeletal: Denies myalgias Musculoskeletal: absent: ankle pain, ankle stiffness, ankle swelling, elbow pain, elbow stiffness, elbow swelling, foot pain, foot stiffness, foot swelling, hand pain, hand stiffness, hand swelling, hip pain, hip stiffness, hip swelling, knee pain, knee stiffness, knee swelling, shoulder pain, shoulder stiffness, shoulder swelling, wrist pain, wrist stiffness, wrist swelling Integumentary: Denies pruritus, Denies rash Neurological: Denies numbness, Denies weakness Psychiatric: Reports anxiety, Reports depression, Denies sadness/tearfulness, Denies sleep disturbances, Denies suicidal ideation Endocrine: Denies fatigue, Denies weight change Physical examination: HEENT: Head is atraumatic, normocephalic, pupils were equal round reactive to light liquidation, extraocular muscle movement were intact, sclera nonicteric, conjunctiva not pale, mucous membranes of the mouth are somewhat dry. Neck: Supple, no JVP, no carotid bruit. Chest: Decreased breath sounds at the bases, few rhonchi, no expiratory wheezes, no chest wall tenderness, no intercostal retractions. Heart: First heart sound is depressed, second sound is normal, there is no gallop or murmur. Abdomen: Soft, nontender, nondistended, positive bowel sounds. Extremities: No edema, no calf tenderness, dorsalis pedis +2 bilaterally.. Neurologic examination: Patient is awake alert and oriented 3, cranial nerves II-12 appear to be grossly intact, muscle power 5 out of 5 in upper and lower extremities bilaterally. - Labs CBC & Chem 7: 02/13/20 11:40 02/12/20 08:32 Labs: Abnormal Lab Results - Last 24 Hours (Table) 02/11/20 02/11/20 02/11/20 Range/Units 13:42 13:42 13:42 Lymphocytes # 0.8 L (1.0-4.8) k/uL D-Dimer 1.03 H (<0.60) mg/L FEU Sodium 134 L (137-145) mmol/L BUN 36 H (7-17) mg/dL Creatinine 1.30 H (0.52-1.04) mg/dL Glucose 123 H (74-99) mg/dL AST 37 H (14-36) U/L Lactate Dehydrogenase (313-618) U/L C-Reactive Protein (<10.0) mg/L Urine Appearance (Clear) Urine Nitrite (Negative) Ur Leukocyte Esterase (Negative) Urine WBC (0-5) /hpf Urine WBC Clumps (None) /hpf Urine Bacteria (None) /hpf Urine Mucus (None) /hpf 02/11/20 02/11/20 Range/Units 13:42 13:48 Lymphocytes # (1.0-4.8) k/uL D-Dimer (<0.60) mg/L FEU Sodium (137-145) mmol/L BUN (7-17) mg/dL Creatinine (0.52-1.04) mg/dL Glucose (74-99) mg/dL AST (14-36) U/L Lactate Dehydrogenase 865 H (313-618) U/L C-Reactive Protein 36.8 H (<10.0) mg/L Urine Appearance Cloudy H (Clear) Urine Nitrite Positive H (Negative) Ur Leukocyte Esterase Large H (Negative) Urine WBC 82 H (0-5) /hpf Urine WBC Clumps Moderate H (None) /hpf Urine Bacteria Moderate H (None) /hpf Urine Mucus Rare H (None) /hpf Microbiology - Last 24 Hours (Table) 02/11/20 13:48 Urine Culture - Preliminary Urine,Voided Assessment and Plan Assessment: Assessment and plan: 1. Covid 19 positive PCR with Pneumonia . Continue IV fluid resuscitation the form of normal saline at 75 mL an hour, monitor the patient CMP the next 24 hours, keep the patient off ELTON inhibitor for now, patient will be started on dexamethasone 6 minute gram orally once every day, Lovenox 40 mg subcu Sunday every 24 hours, continue Rocephin 1 g IV piggyback every 24 hours, continue using sulfate 220 mg orally once every day, monitor the patient very closely keep her in contact and droplet precautions, continue with Rocephin and Zithromax. 2. Acute kidney injury due to acute tubular necrosis and diarrhea likely related to Covid 19. Continue IV fluid resuscitation her creatinine has gone better over the last few days, repeat CMP and an x-ray 4 hours. 3. Urinary tract unfection. we will continue with IVF and we will continue with Rocephin 2 gr IVPB daily await the results of cultures. 4. Hypertension and hypertensive cardiovascular disease. Continue patient on metoprolol 25 mg orally twice every day. 5. Hyperlipidemia. Continue patient on Lipitor 10 mg orally once every day. 6. History of anxiety and depressive disorder. Keep the patient off Lexapro for now. 7. DVT prophylaxis. Continue the patient on Lovenox 40 mg subcutaneously every 24 hours. 8. GI prophylaxis. Continue patient on Protonix 40 mg orally once every day. 9. Diarrhea likely related to Covid 19. Continue IV fluid resuscitation. 10. Home in 24 hours.
--- NOTE | 2020-02-13 15:13 | P.DS ---
Providers Date of admission: 02/12/20 04:37 Expected date of discharge: 02/13/20 Attending physician: Devang More Consults: 02/11/20 14:44 Consult Physician Routine Consulting Provider: Shiela Cage Consult Reason/Comments: COVID Do you want consulting provider notified?: Yes Primary care physician: Devang More Hospital Course: This is a 65-year-old female one of my patient with a previous medical history significant for hypertension and hypertensive cardiovascular disease, hyperlipidemia, history of major depressive disorder, patient came to my office about a week ago complaining of increased tiredness and fatigue along with severe diarrhea and poor appetite not able to treat or drink, at that time laboratory evaluation were done and that showed significant acute kidney injury with a creatinine of 2.3 and a GFR down all the way to 27, and the patient was taken off lisinopril hydrochlorothiazide she was instructed to increase her fluid intake and discontinue Lexapro and lisinopril hydrochlorothiazide, and at the same time she had a COVID-19 PCR testing that came back positive just today in the morning patient was called and she was directed to go to the emergency department for evaluation and treatment because of her Covid, and prior history of acute kidney injury, patient was seen by the emergency room department and she was admitted to the observation unit likely her creatinine got better 12.3, she was placed on IV fluid resuscitation she'll be placed on dexamethasone as well she is not a candidate for Remdesevir because she is not hypoxemic at this time, infectious disease consultation was obtained from Dr. Cage and the patient was placed in droplet and contact isolation, patient also was found to have acute UTI, she was startedon Rocephin 2 gr IVPB x1 and we will start Zithromax as her CXR showed new bilateral infiltrate suggestive of early pneumonia. 02/11: Patient is sitting up in bed, feeling a bit better, she continue to have some shortness of breath with ambulation with minimal cough and some phlegm production, no drop in her O2 sat, and she has good appetite, no loss of taste or smell, she is feeling better today, urine culture still pending and talked to her about the results of her CXR. Discharge diagnoses: 1. Covid 19 positive PCR with Pneumonia . 2. Acute kidney injury due to acute tubular necrosis and diarrhea likely related to Covid 19. 3. Urinary tract unfection. 4. Hypertension and hypertensive cardiovascular disease. 5. Hyperlipidemia. 6. History of anxiety and depressive disorder. 7. DVT prophylaxis. 8. GI prophylaxis. 9. Diarrhea likely related to Covid 19. Patient Condition at Discharge: Stable Plan - Discharge Summary New Discharge Prescriptions: No Action Escitalopram [Lexapro] 5 mg PO DAILY Atorvastatin Calcium [Lipitor] 10 mg PO HS Metoprolol Tartrate [Lopressor] 25 mg PO BID Lisinopril-Hctz 20-25 mg [Zestoretic 20-25] 1 tab PO DAILY Discharge Medication List Atorvastatin Calcium [Lipitor] 10 mg PO HS 02/11/20 [History] Escitalopram [Lexapro] 5 mg PO DAILY 02/11/20 [History] Lisinopril-Hctz 20-25 mg [Zestoretic 20-25] 1 tab PO DAILY 02/11/20 [History] Metoprolol Tartrate [Lopressor] 25 mg PO BID 02/11/20 [History] Follow up Appointment(s)/Referral(s): Devang More MD [Primary Care Provider] - 1-2 days
--- NOTE | 2020-02-13 18:47 | PN ---
PROGRESS NOTE DATE OF SERVICE: 02/13/2020 REASON FOR FOLLOWUP: 1. Acute COVID-19 infection. 2. UTI. INTERVAL HISTORY: Patient is seen on rounds early this afternoon. The patient overall is feeling better. She is breathing comfortably. The patient's shortness of breath has improved. Minimal cough. No nausea, no vomiting. No abdominal pain. No diarrhea. PHYSICAL EXAMINATION: Blood pressure 137/76, pulse of 87, temperature 98.1. She is 98% on room air. General description: The patient is a middle-aged female up in the bed in no distress. Respiratory system: Unlabored breathing. Extremities: No edema of the feet. LABS: Hemoglobin 11.5, white count 7.8. CRP is down to 20 and LDH has normalized. DIAGNOSTIC IMPRESSION AND PLAN: 1. Patient with acute Covid-19 and overall clinical improvement on the dexamethasone, zinc with Invanz to continue for another week. 2. Gram-negative urinary tract infection, improved on the Rocephin to finish therapy with Ceftin. MMODL / IJN: [id number] /
[2020-02-14] MEDS ORDERED: AZITHROMYCIN 500 MG TAB PO SCH (09:00)
== END 2020-02-13 16:20 | disposition home or self-care (01) | DRG 177 ==
LOC: EC 12:48 → 1SOBS 14:43 → OBSVTOIN 02-12 04:37
PROVIDERS: ADMIT Internal Medicine; ATTEND Internal Medicine
DX: U07.1 COVID-19 (principal); J12.89 Other viral pneumonia; N17.0 Acute kidney failure with tubular necrosis; A08.39 Other viral enteritis; N39.0 Urinary tract infection, site not specified; I11.9 Hypertensive heart disease without heart failure; B96.89 Other specified bacterial agents as the cause of diseases classified elsewhere; D72.810 Lymphocytopenia; E78.5 Hyperlipidemia, unspecified; F32.9 Major depressive disorder, single episode, unspecified; F41.9 Anxiety disorder, unspecified; Z79.899 Other long term (current) drug therapy; Z98.42 Cataract extraction status, left eye; Z98.41 Cataract extraction status, right eye; Z96.1 Presence of intraocular lens; Z87.2 Personal history of diseases of the skin and subcutaneous tissue; Z98.890 Other specified postprocedural states; Z91.041 Radiographic dye allergy status; Z91.013 Allergy to seafood
CPT/HCPCS: 36415; 71045; 80053; 81001; 83605; 83615; 83735; 84145; 85025; 85379; 85610; 85730; 86140; 87077; 87086; 87186; 93005; 96361; 96374; 99284

== ENCOUNTER → 2020-02-23 | Outpatient (CLI) | payer BC, OTHER | END | disposition home or self-care (01) | LOC: LABWHC1 12:47 | PROVIDERS: ATTEND Internal Medicine | DX: U07.1 COVID-19 (principal) ==

== ENCOUNTER → 2020-04-19 | Outpatient (CLI) | payer BC, OTHER ==
--- NOTE | 2020-04-20 13:16 | MM ---
Reason for exam: screening (asymptomatic). Last mammogram was performed 1 year and 1 month ago. History: Patient is postmenopausal, has history of high-risk lesion on a previous biopsy at age 54, and had first child at age 37. Family history of breast cancer in paternal grandmother at age 70. High risk right breast needle localzation of both breasts, August 17, 2010. Benign right mammotome panel of the right breast, July 18, 2010. Took hormonal contraceptives for 3 years. Took tamoxifen for 5 years beginning at age 54. Physical Findings: A clinical breast exam by your physician is recommended on an annual basis and results should be correlated with mammographic findings. MG 3D Screening Mammo W/Cad Bilateral CC and MLO view(s) were taken. Prior study comparison: March 24, 2019, bilateral MG 3d screening mammo w/cad. March 06, 2018, bilateral MG 3d diag mammo w/cad AL[facility]SSA. The breast tissue is heterogeneously dense. This may lower the sensitivity of mammography. There is chronic nodularity bilaterally. No significant changes when compared with prior studies. ASSESSMENT: Benign, BI-RAD 2 RECOMMENDATION: Routine screening mammogram of both breasts in 1 year.
== END | disposition home or self-care (01) ==
LOC: RADMAMWWP 15:44
PROVIDERS: ATTEND Internal Medicine
DX: Z12.31 Encounter for screening mammogram for malignant neoplasm of breast (principal)
CPT/HCPCS: 77063; 77067

== ENCOUNTER → 2021-04-20 | Outpatient (CLI) | payer BC, OTHER | END | disposition home or self-care (01) | LOC: RADMAMWWP 13:33 | PROVIDERS: ATTEND Internal Medicine | DX: Z53.9 Procedure and treatment not carried out, unspecified reason (principal) ==

== ENCOUNTER → 2021-07-04 | Day surgery (SDC) | payer BC, OTHER ==
[2021-07-04 07:32] VITALS: RESP 16
[2021-07-04 08:41] VITALS: BP 124/82; PULSE 71; TEMP 98.5
--- NOTE | 2021-07-04 16:50 | MM ---
EXAMINATION TYPE: MG stereo VAD BX LT DATE OF EXAM: 07/04/2021 COMPARISON: NONE CLINICAL HISTORY: Abnormal mammogram, calcifications TECHNIQUE: Stereotactic guided core biopsy of left breast. FINDINGS: The procedure of stereotactic guided core biopsy was explained to the patient. Benefits, a lternatives, and risks were discussed. An informed consent was then obtained. Timeout was performed . The procedure was targeted by radiology. The procedure was performed by radiology. A vacuum assisted biopsy gun was used to obtain 6 core samples. The patient tolerated the procedure well without any immediate complication. The patient was kept in the radiology department for short stay after the procedure and then discharged home in stable condi tion. Discharge instructions were discussed with the patient. Specimen: Targeted calcifications are identified in specimen mammogram. Postprocedure mammogram: Post biopsy mammogram shows the marker to appear in satisfactory position re lative to the targeted area of concern on the preprocedure images. IMPRESSION: 1. Successful stereotactic core biopsy 10:00 left breast calcifications
== END | disposition home or self-care (01) ==
LOC: RADMAMWWP 07:02
PROVIDERS: ATTEND Surgery
DX: D05.12 Intraductal carcinoma in situ of left breast (principal); R92.1 Mammographic calcification found on diagnostic imaging of breast
CPT/HCPCS: 19081; A4648; J2001; 88305; 88341; 88342

== ENCOUNTER 2021-07-19 09:47 | Day surgery (SDC) | payer BC, OTHER ==
[2021-07-18 08:43] VITALS: BMI 36.0
[~2021-07-19 09:47] MED LIST: LACTATED RINGERS 1,000 ML IV SCH; LIDOCAINE 1% (10MG/ML) FOR IV START INTRADERMA PRN
[2021-07-19 10:11] VITALS: TEMP 96.4
[2021-07-19] MEDS ORDERED: PROPOFOL 10 MG/ML 20 ML VIAL IV ONE (10:35)
--- NOTE | 2021-07-19 10:56 | P.PCN ---
Date of Procedure: 07/19/21 Procedure(s) Performed: BRIEF HISTORY: Patient is a 65-year-old pleasant 8 female scheduled for an elective colonoscopy as a part of evaluation of prior history of colon polyps. Her last colonoscopy was done 3 years ago and was noted to have adenomatous polyps. PROCEDURE PERFORMED: Colonoscopy. PREOPERATIVE DIAGNOSIS: History of colon polyps. IV sedation per Anesthesia. PROCEDURE: After informed consent was obtained, the patient, was brought into the endoscopy unit. IV sedation was administered by Anesthesia under continuous monitoring. Digital rectal examination was normal. Initially the Olympus CF-160 flexible video colonoscope was then inserted in the rectum, gradually advanced into the cecum without any difficulty. Careful examination was performed as the scope was gradually being withdrawn. Ileocecal valve and the appendiceal orifice were visualized and appeared normal. Prep was excellent. Mucosa of the cecum, ascending colon, transverse colon, descending colon, sigmoid colon, and rectum appeared normal. Sigmoid diverticulosis Retroflexion was performed in the rectum and no lesions were seen. The patient tolerated the procedure well. IMPRESSION: Normal-appearing colon from rectum to cecum with no evidence of colorectal neoplasia. Scattered sigmoid diverticulosis. RECOMMENDATIONS: Findings of this examination were discussed with the patient as her family. She was advised to have a repeat surveillance colonoscopy in 5 years from now because of prior history of colon polyps..
[2021-07-19 11:14] VITALS: BP 132/85; PULSE 82; RESP 14
== END 2021-07-19 11:44 | disposition home or self-care (01) ==
LOC: ORWHC2ENDO 09:47
PROVIDERS: ATTEND Internal Medicine Gastroenterology
DX: Z12.11 Encounter for screening for malignant neoplasm of colon (principal); K57.30 Diverticulosis of large intestine without perforation or abscess without bleeding; Z86.010 Personal history of colon polyps; Z79.899 Other long term (current) drug therapy; I10 Essential (primary) hypertension; E78.5 Hyperlipidemia, unspecified; M10.9 Gout, unspecified; Z88.1 Allergy status to other antibiotic agents; Z91.041 Radiographic dye allergy status
CPT/HCPCS: J2704; G0105; 45378

== ENCOUNTER 2021-08-22 07:00 | Day surgery (SDC) | payer BC, OTHER ==
[2021-08-18 13:03] VITALS: BMI 35.9
[~2021-08-22 07:00] MED LIST changes: +ACETAMINOPHEN TAB 500 MG TAB PO PRN; +DEXAMETHASONE SOD PHOSPHATE 4 MG/ML 1 ML VIAL IV ONE; +HEPARIN SODIUM,PORCINE/PF 5,000 UNIT/0.5 ML SYRINGE SQ PRN; -LIDOCAINE 1% (10MG/ML) FOR IV START INTRADERMA PRN; +MIDAZOLAM 2 MG/2 ML VIAL IV PRN; +ONDANSETRON 4 MG/2 ML VIAL IVP ONE; +Pre Op ABX Message 1 EACH MISC MISCELLANE ONE; +SCOPOLAMINE 1 MG/72 HR PATCH TRANSDERM ONE
[2021-08-22] MEDS ORDERED: ALPRAZolam 0.5 MG TAB ONE (07:43)
--- NOTE | 2021-08-22 08:03 | P.GSHP ---
History of Present Illness H&P Date: 08/22/21 Chief Complaint: Left breast cancer 65-year-old female with recent diagnosis of high-grade DCIS left breast. Patient with personal history of DCIS right breast in the past. Underwent recent genetic testing showing no actionable dictations. Case was presented at multidisciplinary tumor board. Patient is interested in breast conservation regardless. Here today for lumpectomy. Past Medical History Past Medical History: Hyperlipidemia, Hypertension Additional Past Medical History / Comment(s): bilat cataracts History of Any Multi-Drug Resistant Organisms: None Reported Past Surgical History: Breast Surgery Additional Past Surgical History / Comment(s): RIGHT BREAST BX-NEG. LAPROSCOPY. BILATERAL CATARACTS WITH LENS IMPLANTS. COLONOSCOPY. Past Anesthesia/Blood Transfusion Reactions: No Reported Reaction Additional Past Anesthesia/Blood Transfusion Reaction / Comment(s): SEEMS TO TAKE EXTRA ANESTHESIA TO KEEP HER ASLEEP. Past Psychological History: No Psychological Hx Reported Smoking Status: Never smoker Past Alcohol Use History: Rare Past Drug Use History: None Reported - Past Family History Brother(s) Family Medical History: Cancer Additional Family Medical History / Comment(s): Prostate cancer. Medications and Allergies Home Medications Medication Instructions Recorded Confirmed Type Atorvastatin Calcium [Lipitor] 10 mg PO HS 02/11/20 08/22/21 History Metoprolol Tartrate [Lopressor] 25 mg PO BID 02/11/20 08/22/21 History Allopurinol [Zyloprim] 200 mg PO DAILY 06/24/21 08/22/21 History Lisinopril-Hctz 20-25 mg 0.5 tab PO QAM 06/24/21 08/22/21 History [Zestoretic 20-25] Montelukast [Singulair] 10 mg PO HS 06/24/21 08/22/21 History Zinc Sulfate [Orazinc] 30 mg PO DAILY 06/24/21 08/18/21 History Ascorbic Acid [Vitamin C] 500 mg PO DAILY 07/18/21 08/18/21 History Cholecalciferol [Vitamin D3 (25 50 mcg PO DAILY 07/18/21 08/18/21 History Mcg = 1000 Iu)] Melatonin 3 mg PO HS PRN 08/18/21 08/22/21 History Allergies Allergy/AdvReac Type Severity Reaction Status Date / Time Iodinated Contrast Media Allergy Severe Anaphylaxis Verified 08/22/21 07:25 iodine Allergy Anaphylaxis Verified 08/22/21 07:25 shellfish derived [Shellfish] Allergy Anaphylaxis Verified 08/22/21 07:25 doxycycline AdvReac Nausea Verified 08/22/21 07:25 Surgical - Exam Vital Signs Temp Pulse Resp BP Pulse Ox 97.3 F L 80 16 141/68 96 08/22/21 07:26 08/22/21 07:26 08/22/21 07:26 08/22/21 07:26 08/22/21 07:26 Physical exam: General: Well-developed, well-nourished HEENT: Normocephalic, sclerae nonicteric Right breast: No masses, no adenopathy, previous scars noted Left breast: No masses, no adenopathy Abdomen: Nontender, nondistended Extremities: No edema Neuro: Alert and oriented Assessment and Plan (1) Breast cancer, left Narrative/Plan: 65-year-old female with left breast cancer. We'll proceed with left breast wire localization lumpectomy with sentinel lymph node biopsy and injection at this time. Risks of bleeding, infection, scarring, dimpling, nerve injury, numbness, lymphedema, possible need for further surgery, recurrence reviewed. She unde rstands and wishes to proceed. Current Visit: Yes Status: Acute Code(s): C50.912 - MALIGNANT NEOPLASM OF UNSPECIFIED SITE OF LEFT FEMALE BREAST SNOMED Code(s): 839459958
[2021-08-22] MEDS ORDERED: LIDOCAINE 1% INJ 10MG/ML (20 ML MDV) SQ ONE (08:35)
--- NOTE | 2021-08-22 09:34 | NM ---
EXAMINATION TYPE: NM sentinel node injection DATE OF EXAM: 08/22/2021 COMPARISON: NONE HISTORY: DCIS LEFT BREAST D05.12 TECHNIQUE AND FINDINGS: The procedure of sentinel lymph node injection was explained to the patient. The benefits, alternatives, and risks were discussed. An informed consent was then obtained. Overlying skin is cleaned with sterile alcohol. Following this, 512 uCi Tc99m Tilmanocept was inject ed in the upper outer aspect of the left nipple intradermally. The patient tolerated the procedure well without any immediate complication. The patient was kept in the radiology department for short stay after the procedure and then taken to surgery for surgical p rocedure what is presumed intraoperative gamma probe will be used for sentinel lymph node detection. IMPRESSION: Left breast radiotracer injection for sentinel node localization as above.
[2021-08-22] MEDS ORDERED: PROPOFOL 10 MG/ML 20 ML VIAL IV ONE (09:36)
[2021-08-22] MEDS ORDERED: PHENYLEPHRINE-0.9% NACL SYG 1,000 MCG/10 ML SYRINGE ONE (09:36)
[2021-08-22] MEDS ORDERED: LIDOCAINE 1% INJ 10MG/ML (20 ML MDV) ONE (09:36)
[2021-08-22] MEDS ORDERED: fentaNYL (PF) 50 MCG/ML 2 ML AMP ONE (09:36)
[2021-08-22] MEDS ORDERED: SUCCINYLCHOLINE CHLORIDE 100 MG/5 ML SYR IV ONE (09:36)
[2021-08-22] MEDS ORDERED: MIDAZOLAM 2 MG/2 ML VIAL ONE (09:36)
[2021-08-22] MEDS ORDERED: BUPIVACAIN-EPI 0.25%-1:200,000 30 ML VIAL SQ ONE ×3 (09:39→11:03)
[2021-08-22] MEDS ORDERED: METHYLENE BLUE 10 MG/ML (10 ML VIAL) INJ ONE (09:55)
[2021-08-22] MEDS ORDERED: SODIUM CHLORIDE 0.9% 100 ML with ceFAZolin 2,000 MG IV ONE ×2 (09:56)
[2021-08-22] MEDS ORDERED: LACTATED RINGERS 1,000 ML IV ONE ×2 (10:43)
[2021-08-22] MEDS ORDERED: NALOXONE 0.4 MG/ML 1 ML VIAL IV PRN (11:30)
[2021-08-22 11:31] VITALS: TEMP 97.8
--- NOTE | 2021-08-22 11:39 | P.OP ---
Date of Procedure: 08/22/21 Procedure(s) Performed: PREOPERATIVE DIAGNOSIS: Left breast cancer POSTOPERATIVE DIAGNOSIS: Same PROCEDURE: Left Breast wire localization lumpectomy with sentinel lymph node biopsy SURGEON: Inocencio EBL: Minimal ANESTHESIA: General COMPLICATIONS: None OPERATIVE PROCEDURE: Patient was placed on the operating room table in the supine position. 2 mL of methylene blue was injected into the subareolar space. The breast was then massaged for 5 minutes. The breast was prepped and draped in usual sterile fashion. The left axilla was addressed at that time. The hot spot in the left axilla was identified. A small curvilinear incision was made using the scalpel. Dissection down through the subcutaneous tissues took place using electrocautery. Using the neoprobe I identified a total of 2 sentinel lymph nodes. None of these were blue in color. These had benign exam characteristics. These were all removed and sent to pathology for permanent sectioning. The surgical site was inspected and no bleeding was seen. The wire was seen entering the breast at the 9:00 location directed medially. A curvil inear incision was made adjacent to the areola. Subcutaneously I traveled until the wire was identified and brought out through the periareolar incision. An adequate lumpectomy specimen then took place around the wire. Margins of 1.5-2 cm worth attempted to be achieved. Palpation of the specimen suggested that the anterior/inferior/lateral margins were somewhat close. I took an additional mar gin adjacent to that section of the lumpectomy and this margin was painted the appropriate color on the new margin side. The initial specimen was also painted the appropriate 6 colors. As I was painting the new margin side I did have the new margin laying up against the lumpectomy and as I moved the new margin piece I noticed that some of the ink from the lumpectomy blood over. I contacted path ology. I placed the new margin section of the specimen on top of the lumpectomy specimen in the same manner that it was present in the breast. Dr. Montenegro plans to evaluate the specimen as it comes from radiology. The clip was confirmed to be within the lumpectomy specimen by radiology. The lumpectomy was examined. No bleeding was seen. Clips were used around the lumpectomy site help with future radiation planning. The subcutaneous tissues were closed using 2-0 and 3-0 Vicryl sutures. The skin was closed using a running 4-0 Monocryl stitch. Skin glue was then applied. DISPOSITION: Stable to recovery room
[2021-08-22] MEDS: HYDROmorphone 0.5 MG/0.5 ML SYRINGE IVP PRN ×3 (11:42→12:04)
[2021-08-22 11:43] VITALS: RESP 16
[2021-08-22] MEDS ORDERED: Acetaminophen-Codeine 300-30mg TAB ONE (13:12)
[2021-08-22] MEDS ORDERED: Acetaminophen-Codeine 300-30mg TAB PO ONE (13:15)
[2021-08-22 13:48] VITALS: BP 119/80; PULSE 68
--- NOTE | 2021-08-22 13:50 | MM ---
EXAMINATION TYPE: MG pre op needle loc LT, MG surgical specimen LT DATE OF EXAM: 08/22/2021 9:02 AM COMPARISON: NONE HISTORY: D05.12 DCIS Informed consent was obtained and all the patient's questions were answered. The lesion in question was localized mammographically. The standard sterile technique was utilized, as well as appropriate local anesthesia with 1% Lidocaine .Localization needle followed by placement of a guidewire was per formed under mammographic guidance. Verification images demonstrate appropriate deployment of the erica dewire. The patient tolerated the procedure well and left the department in stable condition. Specimen radiograph demonstrates the clip in question to reside within the specimen. IMPRESSION: Successful needle localization and open biopsy left breast with pathology results pending .
== END 2021-08-22 14:04 | disposition home or self-care (01) ==
LOC: OR 07:00
PROVIDERS: ATTEND Surgery
DX: D05.12 Intraductal carcinoma in situ of left breast (principal); E78.5 Hyperlipidemia, unspecified; I10 Essential (primary) hypertension
CPT/HCPCS: 19301; 38525; 38900; 19281; 38792; 76098; C1819; A9520; J2250; J1100; J2405; J0690; J2001; Q9968; J3010; J2370; J0330; J2704; J1170; J1644; 88307; 88342

== ENCOUNTER → 2022-01-19 | Outpatient (CLI) | payer BC, OTHER ==
--- NOTE | 2022-01-19 19:23 | BD ---
EXAMINATION TYPE: Axial Bone Density DATE OF EXAM: 01/19/2022 CLINICAL HISTORY: 66 years year old Female. ICD-10 CODE: C50.212 Malignant neoplasm of upper-inner q uadrant Height: 66.25 Weight: 240.3 FRAX RISK QUESTIONS: Alcohol (3 or more units per day): NO Family History (Parent hip fracture): NO Glucocorticoids (More than 3mos): NO History of Fracture in Adulthood: NO Secondary Osteoporosis: 1. Type 1 Diabetes: NO 2. Hyperthyroidism: NO 3. Menopause before 45: NO 4. Malnutrition: NO 5. Chronic liver disease: NO Rheumatoid Arthritis: NO Current Tobacco Use: NO RISK FACTORS HISTORY OF: Hip Fracture (Right/Left): NO Spine Fracture: NO History of Wrist Fracture: NO Surgery to Spine/Hip(right/left)/Wrist (right/left): NO Family History of Osteoporosis: NO Active: NO Diet low in dairy products/other sources of calcium: YES Postmenopausal woman: YES Take estrogen and/or progesterone medications: NO Lost more than 2 inches in height since high school: NO Frequent falls: NO Poor Health: NO Hyperparathyroidism:NO Adrenal Insufficiency: NO MEDICATIONS: Prednisone or other steroids: NO Thyroid Medications: NO Osteoporosis Medications: NO Additional Medications: LETROZOLE, BP MEDS, CHOLESTEROL MEDS, Additional History: BREAST CANCER 2021 WITH RADIATION EXAM MEASUREMENTS: Bone mineral densitometry was performed using the [employer] System. Bone mineral density as measured about the Lumbar spine is: ----- L1-L4(G/cm2): 1.194 T Score Values are as follows: ----- L1: -1.4 ----- L2: 0.2 ----- L3: 0.8 ----- L4: 0.6 ----- L1-L4: 0.1 Bone mineral density has: DECREASED 6.0 % since study of: 04/08/2013 Bone mineral density about the R hip (g/cm2): 1.023 Bone mineral density about the L hip (g/cm2): 0.825 T Score values are as follows: -----R Neck: -0.1 -----L Neck: -1.5 -----R Total: -0.5 -----L Total: -0.8 Bone mineral density has: DECREASED 12.7 % since study of: 05/08/2013 FRAX%s: The graph provided illustrates a 8.0% chance for a major osteoporotic fx and a 0.8% chance fo r the hips probability for fx in 10 years time. IMPRESSION: Osteopenia (T Score between -2.5 and -1). There is slightly increased risk of fracture and the patient may be considered for treatment. Re-Screen 2-5 years. NOTE: T-SCORE=SD OF THE YOUNG ADULT MEAN.
== END | disposition home or self-care (01) ==
LOC: RADBDWWP 10:33
PROVIDERS: ATTEND Internal Medicine Hematology & Oncology
DX: C50.212 Malignant neoplasm of upper-inner quadrant of left female breast (principal); M85.89 Other specified disorders of bone density and structure, multiple sites; Z78.0 Asymptomatic menopausal state; Z71.3 Dietary counseling and surveillance
CPT/HCPCS: 77080

== ENCOUNTER → 2022-05-24 | Outpatient (CLI) | payer BC, OTHER ==
--- NOTE | 2022-05-24 12:41 | MM ---
Reason for Exam: Follow-up at short interval from prior study. Last screening mammogram was performed 12 month(s) ago. Patient History: Menarche at age 15. First Full-Term at age 37. Late child-bearing (after 30). Postmenopausal. Breast cancer, age 65. Previous chest radiation therapy at age 65. Patient used Hormonal Contraceptives for 3 years. Tamoxifen for 5 years from age 54 until age 59. 08/22/2021, Lumpectomy on the Left side. 08/22/2021, Malignant Core Biopsy on the left side. 07/04/2021, Malignant Core Biopsy on the left side. 08/17/2010, Bilateral High risk Excisional Biopsy. 07/18/2010, Benign Core Biopsy on the right side. Paternal grandmother had breast cancer, age 70. Prior Study Comparison: 01/21/2016 Bilateral Diagnostic Mammogram, [facility]. 02/05/2017 Bilateral Diagnostic Mammogram, [facility]. 03/06/2018 Bilateral Diagnostic Mammogram, [facility]. 03/24/2019 Bilateral Screening Mammogram, [facility]. 04/19/2020 Bilateral Screening Mammogram, [facility]. 05/23/2021 Bilateral Screening Mammogram, [facility]. 05/31/2021 Left Diagnostic Mammogram, [facility]. Tissue Density: There are scattered fibroglandular densities. Findings: Analyzed By CAD. Postsurgical changes in the left breast with multiple clips. No new suspicious masses, consultations or distortions. Overall Assessment: Benign, BI-RAD 2 Management: Diagnostic Mammogram of both breasts in 1 year. A clinical breast exam by your physician is recommended on an annual basis and results should be correlated with mammographic findings. This exam should not preclude additional follow-up of suspicious palpable abnormalities. Results were given to the patient verbally at the time of exam. Electronically signed and approved by: Chuck Hdez DO
== END | disposition home or self-care (01) ==
LOC: RADMAMWWP 10:52
PROVIDERS: ATTEND Surgery
DX: R92.8 Other abnormal and inconclusive findings on diagnostic imaging of breast (principal); Z85.3 Personal history of malignant neoplasm of breast; Z80.3 Family history of malignant neoplasm of breast; Z78.0 Asymptomatic menopausal state; Z98.890 Other specified postprocedural states
CPT/HCPCS: 77062; 77066

== ENCOUNTER → 2023-05-25 | Outpatient (CLI) | payer BC, OTHER ==
--- NOTE | 2023-05-28 16:56 | MM ---
Reason for Exam: Hx of breast cancer, conservation therapy. Last screening mammogram was performed 12 month(s) ago. Patient History: Menarche at age 15. First Full-Term at age 37. Late child-bearing (after 30). Postmenopausal. Breast cancer, right, age 55. Breast cancer, left, age 65. Previous chest radiation therapy at age 65. Patient used Hormonal Contraceptives for 3 years. Tamoxifen for 5 years from age 54 until age 59. 08/22/2021, Lumpectomy on the Left side. 08/22/2021, Malignant Core Biopsy on the left side. 07/04/2021, Malignant Core Biopsy on the left side. 08/17/2010, Bilateral High risk Excisional Biopsy. 07/18/2010, Benign Core Biopsy on the right side. Paternal grandmother had breast cancer, age 70. Prior Study Comparison: 02/05/2017 Bilateral Diagnostic Mammogram, [facility]. 03/06/2018 Bilateral Diagnostic Mammogram, [facility]. 03/24/2019 Bilateral Screening Mammogram, [facility]. 04/19/2020 Bilateral Screening Mammogram, [facility]. 05/23/2021 Bilateral Screening Mammogram, [facility]. 05/31/2021 Left Diagnostic Mammogram, [facility]. 05/24/2022 Bilateral MG 3D diag mammo w/cad ALYSSA, [facility]. Tissue Density: The breast tissue is heterogeneously dense. This may lower the sensitivity of mammography. Findings: Analyzed By CAD. Chronic nodularity on the right. Postsurgical and posttreatment changes left breast. There is no suspicious group of microcalcifications or new suspicious mass in either breast. Overall Assessment: Benign, BI-RAD 2 Management: Screening Mammogram of both breasts in 1 year. . Patient should continue monthly self-breast exams. A clinical breast exam by your physician is recommended on an annual basis. This exam should not preclude additional follow-up of suspicious palpable abnormalities. Note on Yamilka scores and lifetime risk: 1. A Yamilka score greater than 3% is considered moderate risk. If this is the case, consider specialist referral to assess eligibility for a risk reducing agent. 2. If overall lifetime risk for the development of breast cancer is 20% or higher, the patient may qualify for future screening with alternating mammogram and breast MRI. Electronically signed and approved by: Noa Boswell M.D. Radiologist
== END | disposition home or self-care (01) ==
LOC: RADMAMWWP 09:41
PROVIDERS: ATTEND Internal Medicine
DX: Z12.31 Encounter for screening mammogram for malignant neoplasm of breast (principal); C50.112 Malignant neoplasm of central portion of left female breast; Z80.3 Family history of malignant neoplasm of breast; Z78.0 Asymptomatic menopausal state
CPT/HCPCS: 77063; 77067

== ENCOUNTER → 2023-11-06 | Outpatient (CLI) | payer MEDICARE ==
--- NOTE | 2023-11-06 14:58 | US ---
EXAMINATION TYPE: US carotid duplex BILAT DATE OF EXAM: 11/06/2023 COMPARISON: US 2019 CLINICAL INDICATION: Female, 68 years old with history of I65.23 OCCLUSION AND STENOSIS OF BILATERAL CAROTID; TECHNIQUE: Carotid duplex ultrasound examination. Indirect Doppler criteria was utilized. FINDINGS: EXAM MEASUREMENTS: RIGHT: Peak Systolic Velocity (PSV) cm/sec ----- Right CCA: 54.6 ----- Right ICA: 95.2 ----- Right ECA: 80.2 ICA/CCA ratio: 1.7 RIGHT: End Diastole cm/sec ----- Right CCA: 13.6 ----- Right ICA: 31.8 ----- Right ECA: 10.3 LEFT: Peak Systolic Velocity (PSV) cm/sec ----- Left CCA: 66.6 ----- Left ICA: 92.2 ----- Left ECA: 70.6 ICA/CCA ratio: 1.4 LEFT: End Diastole cm/sec ----- Left CCA: 13.8 ----- Left ICA: 26.8 ----- Left ECA: 10.8 VERTEBRALS (direction of flow): Right Vertebral: Antegrade Left Vertebral: Antegrade Rhythm: Normal No significant stenosis 1.6 x 1.1 x 1.2cm right thyroid nodule IMPRESSION: No evidence for hemodynamically significant stenosis. Consider thyroid ultrasound for thyroid nodule. Criteria for Assigning % of Stenosis / Diameter reduction (Estimation based on the indirect measurements of the internal carotid artery velocities (ICA PSV). 1. Normal (no stenosis)=ICA PSV < 125 cm/s: ratio < 2.0: ICA EDV<40 cm/s. 2. Less than 50% stenosis=ICA PSV < 125 cm/s: ratio < 2.0: ICA EDV<40 cm/s. 3. 50 to 69% stenosis=ICA PSV of 125 to 230 cm/s: ration 2.0 ? 4.0: ICA EDV 40-100 cm/s. 4. Greater than 70% stenosis to near occlusion= ICA PSV > 230 cm/s: ratio > 4.0: ICA EDV > 100 cm/s. 5. Near occlusion= ICA PSV velocities may be low or undetectable: variable ratio and ICA EDV. 6. Total occlusion=unable to detect flow.
--- NOTE | 2023-11-07 12:45 | CA ---
Transthoracic Echo Report Name: Taco Tobar Age: 68 Gender: F : 1955 Exam Date: 11/06/2023 13:57 Exam Location: [facility] Ht (in): 67 Wt (lb): 230 Ordering Physician: Devang More MD Attending/Referring Phys: Devang More MD Manager [employer] Ivet Anthony, RD Procedure CPT: Indications: I65.23 OCCLUSION AND STENOSIS OF BILATERAL CAROTID Cardiac Hx: Technical Quality: Fair Contrast 1: Total Dose (mL): Contrast 2: Total Dose (mL): MEASUREMENTS (Male / Female) Normal Values 2D ECHO LV Diastolic Diameter PLAX 4.7 cm 4.2 - 5.9 / 3.9 - 5.3 cm LV Systolic Diameter PLAX 3.6 cm IVS Diastolic Thickness 1.2 cm 0.6 - 1.0 / 0.6 - 0.9 cm LVPW Diastolic Thickness 1.1 cm 0.6 - 1.0 / 0.6 - 0.9 cm LV Relative Wall Thickness 0.5 RV Internal Dim ED PLAX 2.7 cm LA Systolic Diameter LX 4.1 cm 3.0 - 4.0 / 2.7 - 3.8 cm LV Diastolic Volume MOD BP 39.3 cm??? 67 - 155 / 56 - 104 cm??? LV Systolic Volume MOD BP 17.7 cm??? 22 - 58 / 19 - 49 cm??? LV Ejection Fraction MOD BP 54.9 % >= 55 % LV Cardiac Index MOD BP 667.3 cm???/min???m??? LV Diastolic Volume MOD 4C 40.7 cm??? LV Systolic Volume MOD 4C 21.6 cm??? LV Ejection Fraction MOD 4C 46.8 % LV Cardiac Index MOD 4C 589.2 cm???/min???m??? LV Diastolic Length 4C 5.8 cm LV Systolic Length 4C 5.6 cm LV Diastolic Volume MOD 2C 35.5 cm??? LV Systolic Volume MOD 2C 12.6 cm??? LV Ejection Fraction MOD 2C 64.5 % LV Cardiac Index MOD 2C 709.0 cm???/min???m??? LV Diastolic Length 2C 6.2 cm LV Systolic Length 2C 4.7 cm LA Volume 75.3 cm??? 18 - 58 / 22 - 52 cm??? LA Volume Index 33.3 cm???/m??? 16 - 28 cm???/m??? M-MODE Aortic Root Diameter MM 2.8 cm LA Systolic Diameter MM 4.1 cm LA Ao Ratio MM 1.4 AV Cusp Separation MM 1.5 cm DOPPLER AV Peak Velocity 170.5 cm/s AV Peak Gradient 11.6 mmHg MV Area PHT 3.0 cm??? Mitral E Point Velocity 82.6 cm/s Mitral A Point Velocity 85.8 cm/s Mitral E to A Ratio 1.0 MV Deceleration Time 253.7 ms TR Peak Velocity 173.3 cm/s TR Peak Gradient 12.0 mmHg FINDINGS Left Ventricle Left ventricular ejection fraction is estimated at 55-60%. Mildly increased septal wall thickness. Mildly increased posterior wall thickness. No obvious regional wall motion abnormalities. Left ventricular cavity size normal. Right Ventricle Right ventricle not well visualized. Right ventricular systolic pressure within normal limits. Right Atrium Normal right atrial size. Left Atrium Mildly increased left atrial diameter. Mildly increased left atrial volume. Mildly increased left atrial area. Mitral Valve Structurally normal mitral valve. Trace to mild mitral regurgitation. No mitral stenosis. Aortic Valve Trileaflet aortic valve. Diffuse thickening (sclerosis) of the aortic valve cusps without reduced excursion. Trace aortic regurgitation. Tricuspid Valve Structurally normal tricuspid valve. Trace to mild tricuspid regurgitation. No tricuspid stenosis. Pulmonic Valve Structurally normal pulmonic valve. Trace pulmonic regurgitation. No pulmonic regurgitation. Pericardium Echo free space anterior to the right ventricle likely represents a fat pad. No pericardial or pleural effusion. Aorta Normal size aortic root and proximal ascending aorta. CONCLUSIONS Left ventricular ejection fraction is estimated at 55-60%. No obvious regional wall motion abnormalities. Mild concentric LVH Mild LA dilatation Mild aortic valve sclerosis but no stenosis No significant valvular dysfunction Epicardial fat Previewed by: Dr Jerome Garcia (Electronically Signed) Final Date: 07 November 2023 12:44
== END | disposition home or self-care (01) ==
LOC: RADECHMAIN 13:52
PROVIDERS: ATTEND Internal Medicine
DX: I65.23 Occlusion and stenosis of bilateral carotid arteries (principal); I34.0 Nonrheumatic mitral (valve) insufficiency; I35.8 Other nonrheumatic aortic valve disorders
CPT/HCPCS: 93306; 93880

== ENCOUNTER → 2023-11-29 | Outpatient (CLI) | payer MEDICARE, OTHER ==
--- NOTE | 2023-11-30 00:05 | US ---
EXAMINATION TYPE: US thyroid st tissue head/neck DATE OF EXAM: 11/29/2023 COMPARISON: NONE CLINICAL INDICATION: Female, 68 years old with history of E04.1 NONTOX SINGLE THYROID NODULE; Thyroid nodule found on carotid US on 11/06/23 GLAND SIZE: Right Lobe: 4.9 x 1.9 x 2.0 cm Overall Parenchyma: homogeneous Left Lobe: 3.9 x 1.5 x 1.2 cm Overall Parenchyma: homogeneous Isthmus Thickness: 0.4 cm NODULES RIGHT: # of nodules measured on right: 1 1. 1.4 X 1.2 x 1.4 cm, mid mid, solid or almost completely solid, hypoechoic nodule, which is wider than tall, with smooth margins, with echogenic foci. TR 4 2. 0.8 X 0.6 x 0.4 cm, upper mid, solid or almost completely solid, hypoechoic nodule, which is wid er than tall, with smooth margins, without echogenic foci. LEFT: # of nodules measured on left: 0 ISTHMUS: # of nodules measured in the isthmus: 1 1. 0.7 X 0.7 x 0.4 cm solid or almost completely solid, hypoechoic nodule, which is wider than tall , with smooth margins, without echogenic foci. Bilateral neck scanned, no evidence of lymphadenopathy. IMPRESSION: 1. Solid hypoechoic nodule right lobe thyroid. Follow-up exam in one year 2017 ACR TI-RADS LEVEL: TR-RADS 4 - Moderately Suspicious: Follow if > 1 cm, FNA if > 1.5 cm *Highest TI-RADS level nodule reported
== END | disposition home or self-care (01) ==
LOC: RADUSWWP 09:44
PROVIDERS: ATTEND Internal Medicine
DX: E04.1 Nontoxic single thyroid nodule (principal); R22.0 Localized swelling, mass and lump, head
CPT/HCPCS: 76536

== ENCOUNTER → 2024-05-26 | Outpatient (CLI) | payer MEDICARE, OTHER ==
--- NOTE | 2024-05-26 12:06 | MM ---
Reason for Exam: Screening (asymptomatic). Last screening mammogram was performed 12 month(s) ago. Patient History: Menarche at age 15. First Full-Term at age 37. Late child-bearing (after 30). Postmenopausal. Breast cancer, right, age 55. Breast cancer, left, age 65. Previous chest radiation therapy at age 65. Patient used Hormonal Contraceptives for 3 years. Tamoxifen for 5 years from age 54 until age 59. 08/22/2021, Lumpectomy on the Left side. 08/22/2021, Malignant Core Biopsy on the left side. 07/04/2021, Malignant Core Biopsy on the left side. 08/17/2010, Bilateral High risk Excisional Biopsy. 07/18/2010, Benign Core Biopsy on the right side. Paternal grandmother had breast cancer, age 70. Prior Study Comparison: 05/31/2021 Left Diagnostic Mammogram, [facility]. 05/24/2022 Bilateral MG 3D diag mammo w/cad ALYSSA, [facility]. 05/25/2023 Bilateral MG 3D screening mammo w/cad, [facility]. Tissue Density: The breasts are heterogeneously dense, which may obscure small masses. Analyzed By CAD. Overall Assessment: Benign, BI-RAD 2 Management: Diagnostic Mammogram of both breasts in 1 year. Electronically signed and approved by: Leonides Jeffrey M.D.
== END | disposition home or self-care (01) ==
LOC: RADMAMWWP 10:07
PROVIDERS: ATTEND Internal Medicine
DX: Z12.31 Encounter for screening mammogram for malignant neoplasm of breast (principal); Z78.0 Asymptomatic menopausal state; Z80.3 Family history of malignant neoplasm of breast; Z85.3 Personal history of malignant neoplasm of breast; R92.333 Mammographic heterogeneous density, bilateral breasts
CPT/HCPCS: 77063; 77067

== ENCOUNTER → 2024-05-27 | Outpatient (CLI) | payer MEDICARE, OTHER ==
--- NOTE | 2024-05-27 09:17 | BD ---
EXAMINATION TYPE: Axial Bone Density DATE OF EXAM: 05/27/2024 CLINICAL HISTORY: 68 years old Female. ICD-10 CODE: Z13.820 OSTEOPOROSIS , Additional History: Height: 66.5 Weight: 229.3 FRAX RISK QUESTIONS: Alcohol (3 or more units per day): no Family History (Parent hip fracture): no Glucocorticoids (More than 3mos): no (Ex: prednisone, prednisolone, methylprednisolone, dexamethasone, and hydrocortisone). History of Fracture in Adulthood: no Secondary Osteoporosis: 1. Type 1 Diabetes: no 2. Hyperthyroidism: no 3. Menopause before 45: no 4. Malnutrition: no 5. Chronic liver disease: no Rheumatoid Arthritis: no Current Tobacco Use: no RISK FACTORS HISTORY OF: Hip Fracture (Right/Left): no Spine Fracture: no History of Wrist Fracture: no Surgery to Spine/Hip(right/left)/Wrist (right/left): no MEDICATIONS: Thyroid Medications: no Osteoporosis Medications: no EXAM MEASUREMENTS: Bone mineral densitometry was performed using the [employer] System. Bone mineral density as measured about the Lumbar spine is: ----- L1-L4(G/cm2): 1.140 T Score Values are as follows: ----- L1: -2.5 ----- L2: 0.0 ----- L3: 0.3 ----- L4: 0.5 ----- L1-L4: -0.3 Z Score Values are as follows: ----- L1: -2.0 ----- L2: 0.4 ----- L3: 0.8 ----- L4: 0.9 ----- L1-L4: 0.1 Bone mineral density has: decreased -4.5 % since study of: 01/19/2022 Bone mineral density about the R hip (g/cm2): 0.843 Bone mineral density about the L hip (g/cm2): 0.859 T Score values are as follows: -----R Neck: -0.7 -----L Neck: -1.8 -----R Total: -1.3 -----L Total: -1.20 Z Score values are as follows: -----R Neck: 0.1 -----L Neck: -1.0 -----R Total: -0.9 -----L Total: -0.7 Bone mineral density has: decreased -8.7 % since study of: 01/19/2022 FRAX%s: The graph provided illustrates a 9.4% chance for a major osteoporotic fx and a 1.2% chance fo r the hips probability for fx in 10 years time. IMPRESSION: Osteopenia (T Score between -2.5 and -1) remains present. There is slightly increased risk of fracture and the patient may be considered for treatment. Re-Screen 2-5 years. NOTE: T-SCORE=SD OF THE YOUNG ADULT MEAN. [facility], , 05/27/2024 9:14 AM
== END | disposition home or self-care (01) ==
LOC: RADBDWWP 08:31
PROVIDERS: ATTEND Internal Medicine
DX: Z13.820 Encounter for screening for osteoporosis (principal); M81.8 Other osteoporosis without current pathological fracture
CPT/HCPCS: 77080

== ENCOUNTER → 2024-12-10 | Outpatient (CLI) | payer MEDICARE, OTHER ==
--- NOTE | 2024-12-10 11:40 | US ---
EXAMINATION TYPE: US thyroid st tissue head/neck DATE OF EXAM: 12/10/2024 COMPARISON: Thyroid ultrasound 11/29/2023 CLINICAL INDICATION: Female, 69 years old with history of E04.1 NONTOXIC SINGLE THYROID; TECHNIQUE: Grayscale and color Doppler imaging of the thyroid gland. FINDINGS: GLAND SIZE: Right Lobe: 4.8 x 2.0 x 1.9 cm Overall Parenchyma: homogeneous Left Lobe: 4.0 x 1.4 x 1.8 cm Overall Parenchyma: homogeneous Isthmus Thickness: 0.3 cm NODULES RIGHT: # of nodules measured on right: 2 1. 1.6 X 1.3 x 1.3 cm, mid, solid or almost completely solid, hypoechoic nodule, which is wider blake n tall, with smooth margins, without echogenic foci. TR 4. Prior size: 1.4 x 1.2 x 1.4 cm 2. 0.8 X 0.5 x 0.6 cm, upper mid, spongiform, hypoechoic nodule, which is wider than tall, with smo oth margins, without echogenic foci. TR 2. Prior size: 0.8 x 0.6 x 0.4 cm LEFT: # of nodules measured on left: 0 ISTHMUS: # of nodules measured in the isthmus: 1 1. 0.8 X 0.5 x 0.7 cm solid or almost completely solid, hypoechoic nodule, which is wider than tall , with ill-defined margins, without echogenic foci. TR 4. Prior size: 0.7 x 0.7 x 0.4 cm Bilateral neck scanned, no evidence of lymphadenopathy. IMPRESSION: Multinodular thyroid gland redemonstrated. Marginal increase in size of right thyroid lobe 1.6 cm TR 4 nodule. The remaining nodules are subcentimeter and stable. Highest TI-RADS level nodule reported: ACR TI-RADS LEVEL: TI-RADS 4 - Moderately Suspicious: Follow if > 1 cm, FNA if > 1.5 cm TI-RADS assessment score and recommendation for follow-up based on appropriate scoring and treatment protocols. TR1 Benign No FNA TR2 Not suspicious No FNA TR3: If nodule size is ? 2.5 cm, FNA is recommended. If nodule size is ? 1.5 cm, follow-up imaging at 1, 3, and 5 years is recommended. TR4: If nodule size is ? 1.5 cm, FNA is recommended. If nodule size is ? 1.0 cm, follow-up imaging at 1, 2, 3, and 5 years is recommended. TR5: If nodule size is ? 1.0 cm, FNA is recommended. If nodule size is ? 0.5 cm, annual follow-up for up to 5 years is recommended. TR 1 thyroid nodules have a 0.3 % risk of malignancy. TR 2 thyroid nodules have a 1.5 % risk of malignancy. TR 3 thyroid nodules have a 4.8 % risk of malignancy. TR 4 thyroid nodules have a 9.1 % risk of malignancy. TR 5 thyroid nodules have a 35 % risk of malignancy. [email or web address] [facility], , 12/10/2024 11:37 AM
== END | disposition home or self-care (01) ==
LOC: RADUSWWP 10:51
PROVIDERS: ATTEND Internal Medicine
DX: E04.2 Nontoxic multinodular goiter (principal)
CPT/HCPCS: 76536